=== PATIENT | female | born 1960 | race Caucasian/White ===

== ENCOUNTER → 2016-12-28 | Outpatient (CLI) | payer BC ==
--- NOTE | 2016-12-30 08:15 | MM ---
Reason for exam: screening (asymptomatic). Last mammogram was performed 1 year and 1 month ago. History: Patient is postmenopausal. Family history of breast cancer in 2 maternal aunts. Benign US breast aspiration single RT of the right breast, October 15, 2014. Physical Findings: A clinical breast exam by your physician is recommended on an annual basis and results should be correlated with mammographic findings. MG 3D Screening Mammo W/Cad Bilateral CC and MLO view(s) were taken. Prior study comparison: December 01, 2015, bilateral MG screening mammo w CAD. September 24, 2014, bilateral MG screening mammo w CAD. October 10, 2013, bilateral MG screening mammo w CAD. April 27, 2012, bilateral digital screening mammo w/CAD. The breast tissue is heterogeneously dense. This may lower the sensitivity of mammography. Previous mammotome biopsy in the right breast. No significant changes when compared with prior studies. ASSESSMENT: Negative, BI-RAD 1 RECOMMENDATION: Routine screening mammogram of both breasts in 1 year. A negative exam should not preclude additional follow up of suspicious palpable abnormalities.
== END ==
LOC: RADMAMWWP 15:41
PROVIDERS: ATTEND Family Medicine
DX: Z12.31 Encounter for screening mammogram for malignant neoplasm of breast (principal)
CPT/HCPCS: 77063; G0202

== ENCOUNTER 2017-05-12 11:55 | Emergency (ER) | payer BC ==
[2017-05-12] MEDS ORDERED: ASPIRIN 81 MG PO STA (12:09)
[2017-05-12] MEDS ORDERED: NITROGLYCERIN OINT 1 INCH/GM PACKET TOPICAL STA (12:09)
[2017-05-12 12:27] LABS: Basophils # (A) 0.1 k/uL (0-0.2); Basophils % (A) 1 %; CH 30.4; CHCM 33.8; Eosinophils # (A) 0.1 k/uL (0-0.7); Eosinophils % (A) 1 %; HCT 44.8 % (34.0-46.0); HDW 2.31; Luc # (Auto) 0.16; Luc % (Auto) 3; Lymphocytes # (A) 1.5 k/uL (1.0-4.8); Lymphocytes % (A) 27 %; MCH 30.2 pg (25.0-35.0); MCHC 33.5 g/dL (31.0-37.0); MCV 90.3 fL (80.0-100.0); Mean Platelet Volume 9.7; Monocytes # (A) 0.5 k/uL (0-1.0); Monocytes % (A) 9 %; Neutrophils # (A) 3.3 k/uL (1.3-7.7); Neutrophils % (A) 60 %; RBC 4.96 m/uL (3.80-5.40); WBC 5.5 k/uL (3.8-10.6); WBC (Perox) 5.47
--- NOTE | 2017-05-12 12:32 | ED ---
General Adult HPI - General Chief complaint: Chest Pain Stated complaint: Chest Pain Time Seen by Provider: 05/12/17 11:58 Source: patient, EMS, RN notes reviewed Mode of arrival: EMS Limitations: no limitations - History of Present Illness Initial comments: Patient is a pleasant 57-year-old female presenting to the emergency Department with complaints of chest discomfort. Onset of symptoms was 45 minutes ago. Patient has pressure in her chest without radiation. Symptoms improved with nitroglycerin and are now mild rated 2/10. No associated dyspnea, nausea, or diaphoresis. No history of similar symptoms previously. No abdominal pain. No leg pain or leg swelling. - Related Data Home Medications Medication Instructions Recorded Confirmed Latanoprost Ophth [Xalatan 0.005%] 1 drops BOTH EYES HS 05/12/17 05/12/17 Allergies Allergy/AdvReac Type Severity Reaction Status Date / Time codeine Allergy Unknown Verified 05/12/17 12:47 Childhood Review of Systems ROS Statement: Those systems with pertinent positive or pertinent negative responses have been documented in the HPI. ROS Other: All systems not noted in ROS Statement are negative. Constitutional: Denies: fever Eyes: Denies: eye pain ENT: Denies: ear pain Respiratory: Denies: cough, dyspnea Cardiovascular: Reports: chest pain Endocrine: Denies: fatigue Gastrointestinal: Denies: abdominal pain Genitourinary: Denies: dysuria Musculoskeletal: Denies: back pain Skin: Denies: rash Neurological: Denies: weakness Past Medical History Past Medical History: COPD, Pneumonia History of Any Multi-Drug Resistant Organisms: None Reported Past Surgical History: Section Past Psychological History: No Psychological Hx Reported Smoking Status: Current every day smoker Past Alcohol Use History: None Reported Past Drug Use History: None Reported General Exam Limitations: no limitations General appearance: alert, in no apparent distress Head exam: Present: atraumatic Eye exam: Present: normal appearance, PERRL ENT exam: Present: normal oropharynx Neck exam: Present: normal inspection Respiratory exam: Present: normal lung sounds bilaterally. Absent: chest wall tenderness Cardiovascular Exam: Present: regular rate, normal rhythm Expanded Peripheral pulses: 2+: Radial (R), Radial (L), Dorsalis Pedis (R), Dorsalis Pedis (L) GI/Abdominal exam: Present: soft. Absent: tenderness Extremities exam: Present: normal inspection. Absent: pedal edema, calf tenderness Neurological exam: Present: alert Psychiatric exam: Present: normal affect, normal mood Skin exam: Present: normal color Course Vital Signs 05/12/17 05/12/17 11:55 12:07 Temperature 98.4 F Pulse Rate 72 Pulse Rate [ 72 Eye Physician ] Respiratory 16 Rate Blood Pressure 115/69 O2 Sat by Pulse 100 Oximetry EKG Findings - EKG Comments: EKG Findings:: Normal sinus rhythm 70. MO 138. QRS 78. QT 404. QTC 436. Normal axis. Normal QRS. No acute ST change. Medical Decision Making - Medical Decision Making Patient reevaluated and resting comfortably in bed. Patient symptom-free at this time. Patient updated on results. Patient recommended admission for repeat testing and cardiac evaluation. Patient does demonstrate medical decision making. Patient is made understood limitations of tests in the emergency department. Patient is made aware that heart attack has not been ruled out as well as risk for heart attack in the very near future or other problems. Despite this patient does not feel she is at risk and would like to leave. Patient will leave AGAINST MEDICAL ADVICE. - Lab Data Result diagrams: 05/12/17 12:15 05/12/17 12:15 Lab Results 05/12/17 05/12/17 05/12/17 Range/Units 12:15 12:15 12:15 WBC 5.5 (3.8-10.6) k/uL RBC 4.96 (3.80-5.40) m/uL Hgb 15.0 (11.4-16.0) gm/dL Hct 44.8 (34.0-46.0) % MCV 90.3 (80.0-100.0) fL MCH 30.2 (25.0-35.0) pg MCHC 33.5 (31.0-37.0) g/dL RDW 14.0 (11.5-15.5) % Plt Count 172 (150-450) k/uL Neutrophils % 60 % Lymphocytes % 27 % Monocytes % 9 % Eosinophils % 1 % Basophils % 1 % Neutrophils # 3.3 (1.3-7.7) k/uL Lymphocytes # 1.5 (1.0-4.8) k/uL Monocytes # 0.5 (0-1.0) k/uL Eosinophils # 0.1 (0-0.7) k/uL Basophils # 0.1 (0-0.2) k/uL PT (9.0-12.0) sec INR (<1.2) APTT (22.0-30.0) sec Sodium 137 (137-145) mmol/L Potassium 4.2 (3.5-5.1) mmol/L Chloride 105 (98-107) mmol/L Carbon Dioxide 24 (22-30) mmol/L Anion Gap 8 mmol/L BUN 10 (7-17) mg/dL Creatinine 0.81 (0.52-1.04) mg/dL Est GFR (MDRD) Af Amer >60 (>60 ml/min/1.73 sqM) Est GFR (MDRD) Non-Af >60 (>60 ml/min/1.73 sqM) Glucose 101 H (74-99) mg/dL Calcium 9.3 (8.4-10.2) mg/dL Magnesium 2.0 (1.6-2.3) mg/dL Total Bilirubin 0.7 (0.2-1.3) mg/dL AST 22 (14-36) U/L ALT 28 (9-52) U/L Alkaline Phosphatase 73 (38-126) U/L Total Creatine Kinase 131 (30-135) U/L CK-MB (CK-2) 0.9 (0.0-2.4) ng/mL CK-MB (CK-2) Rel Index 0.7 Troponin I <0.012 (0.000-0.034) ng/mL Total Protein 7.0 (6.3-8.2) g/dL Albumin 4.0 (3.5-5.0) g/dL 05/12/17 Range/Units 12:15 WBC (3.8-10.6) k/uL RBC (3.80-5.40) m/uL Hgb (11.4-16.0) gm/dL Hct (34.0-46.0) % MCV (80.0-100.0) fL MCH (25.0-35.0) pg MCHC (31.0-37.0) g/dL RDW (11.5-15.5) % Plt Count (150-450) k/uL Neutrophils % % Lymphocytes % % Monocytes % % Eosinophils % % Basophils % % Neutrophils # (1.3-7.7) k/uL Lymphocytes # (1.0-4.8) k/uL Monocytes # (0-1.0) k/uL Eosinophils # (0-0.7) k/uL Basophils # (0-0.2) k/uL PT 10.4 (9.0-12.0) sec INR 1.1 (<1.2) APTT 23.3 (22.0-30.0) sec Sodium (137-145) mmol/L Potassium (3.5-5.1) mmol/L Chloride (98-107) mmol/L Carbon Dioxide (22-30) mmol/L Anion Gap mmol/L BUN (7-17) mg/dL Creatinine (0.52-1.04) mg/dL Est GFR (MDRD) Af Amer (>60 ml/min/1.73 sqM) Est GFR (MDRD) Non-Af (>60 ml/min/1.73 sqM) Glucose (74-99) mg/dL Calcium (8.4-10.2) mg/dL Magnesium (1.6-2.3) mg/dL Total Bilirubin (0.2-1.3) mg/dL AST (14-36) U/L ALT (9-52) U/L Alkaline Phosphatase (38-126) U/L Total Creatine Kinase (30-135) U/L CK-MB (CK-2) (0.0-2.4) ng/mL CK-MB (CK-2) Rel Index Troponin I (0.000-0.034) ng/mL Total Protein (6.3-8.2) g/dL Albumin (3.5-5.0) g/dL - Radiology Data Radiology results: image reviewed (Chest x-ray shows hyperinflation, otherwise no acute process.) Disposition Clinical Impression: Chest pain Disposition: Left Against Medical Advice Condition: Stable Instructions: Chest Pain (ED) Additional Instructions: Please follow-up with your doctor tomorrow. Aspirin daily. Return for pain, difficulty breathing, worsening or changing symptoms or other concerns. Referrals: Todd Yuen DO [Primary Care Provider] - 1-2 days Time of Disposition: 14:27
[2017-05-12 12:36] LABS: Anion Gap 8 mmol/L; Calcium 9.3 mg/dL (8.4-10.2); Carbon Dioxide 24 mmol/L (22-30); Chloride 105 mmol/L (98-107); Glucose 101 mg/dL (74-99); INR 1.1 (<1.2); Non-African American GFR(MDRD) >60 (>60 ml/min/1.73 sqM); Partial Thromboplastin Time 23.3 sec (22.0-30.0); Prothrombin Time 10.4 sec (9.0-12.0); Sodium 137 mmol/L (137-145); Total Bilirubin 0.7 mg/dL (0.2-1.3)
--- NOTE | 2017-05-12 12:37 | XR ---
EXAMINATION TYPE: XR chest 2V DATE OF EXAM: 05/12/2017 COMPARISON: 08/25/2014 HISTORY: 57-year-old female said onset chest pain TECHNIQUE: PA and lateral views FINDINGS: Heart is normal size. Aorta and pulmonary vasculature are within normal limits. Hyperinflation with m ild diffuse interstitial prominence. Increased AP chest dimension. Accentuated mid thoracic kyphosis. No consolidation or pleural effusion. No pneumothorax seen. IMPRESSION: COPD. No acute cardiopulmonary process.
[2017-05-12 12:41] LABS: ALT 28 U/L (9-52); AST 22 U/L (14-36); Blood Urea Nitrogen 10 mg/dL (7-17); Potassium 4.2 mmol/L (3.5-5.1)
[2017-05-12 12:42] LABS: Alkaline Phosphatase 73 U/L (38-126)
[2017-05-12 12:50] LABS: Creatine Kinase 131 U/L (30-135)
[2017-05-12 13:03] LABS: Creatine Kinase MB 0.9 ng/mL (0.0-2.4); Troponin I <0.012 ng/mL (0.000-0.034)
[2017-05-12 14:41] VITALS: BP 98/64; PULSE 76; RESP 18; TEMP 97.8
== END 2017-05-12 14:50 | disposition left against medical advice (07) ==
LOC: EC 11:55
DX: R07.9 Chest pain, unspecified (principal); R91.8 Other nonspecific abnormal finding of lung field; F17.200 Nicotine dependence, unspecified, uncomplicated; Z79.899 Other long term (current) drug therapy; Z88.5 Allergy status to narcotic agent
CPT/HCPCS: 36415; 71020; 80053; 82550; 82553; 83735; 84484; 85025; 85610; 85730; 93005; 99285

== ENCOUNTER → 2017-07-15 | Outpatient (CLI) | payer BC ==
--- NOTE | 2017-07-18 07:41 | CT ---
EXAMINATION TYPE: CT chest w con DATE OF EXAM: 07/15/2017 COMPARISON: Chest x-ray May 12, 2017 HISTORY: Lung nodule. Patient also experienced right sided chest pain [address] DLP: 122.3 mGycm. Automated Exposure Control for Dose Reduction was Utilized. TECHNIQUE: CT scan of the thorax is performed following with IV Contrast, patient injected with 100 mL of Omnipaque 300. FINDINGS: LUNGS: Mild to moderate underlying emphysematous changes felt present. There is mild to moderate biap ical pleural/parenchymal scarring. There is anterior right middle lobe scarring medially near axial i mage 39. There is bibasilar linear scarring and/or atelectasis. There is no suspicious new parenchyma l nodule or mass. No pleural effusion or pneumothorax is evident bilaterally. MEDIASTINUM: There are no greater than 1 cm hilar or mediastinal lymph nodes. No cardiomegaly or pe ricardial effusion is seen. There is 8mm left thyroid nodule axial image 7 OTHER: Dystrophic calcification medially left breast is seen axial image 23. Posterior spur is effaci ng anterior thecal sac T10-T11 level sagittal image 57. Slight underlying scoliotic curvature is pres ent. IMPRESSION: Mild to borderline moderate emphysematous change with scattered areas of scarring. No new pulmonary process. No suspicious parenchymal nodule or mass identified.
== END | disposition home or self-care (01) ==
LOC: RADCTMAIN 15:53
PROVIDERS: ATTEND Family Medicine
DX: R91.1 Solitary pulmonary nodule (principal)
CPT/HCPCS: 71260; Q9967

== ENCOUNTER → 2018-03-08 | Outpatient (CLI) | payer BC ==
--- NOTE | 2018-03-09 13:23 | MM ---
Reason for exam: screening (asymptomatic). Last mammogram was performed 1 year and 2 months ago. History: Patient is postmenopausal. Family history of breast cancer in 2 maternal aunts. Benign US breast aspiration single RT of the right breast, October 15, 2014. Physical Findings: A clinical breast exam by your physician is recommended on an annual basis and results should be correlated with mammographic findings. MG 3D Screening Mammo W/Cad Bilateral CC and MLO view(s) were taken. Prior study comparison: December 28, 2016, bilateral MG 3d screening mammo w/cad. December 01, 2015, bilateral MG screening mammo w CAD. The breast tissue is extremely dense which could obscure a lesion on mammography. Previous mammotome biopsy in the right breast. There is chronic nodularity bilaterally. There is no dominant lesion. No significant changes when compared with prior studies. ASSESSMENT: Benign, BI-RAD 2 RECOMMENDATION: Routine screening mammogram of both breasts in 1 year.
== END | disposition home or self-care (01) ==
LOC: RADMAMWWP 13:17
PROVIDERS: ATTEND Family Medicine
DX: Z12.31 Encounter for screening mammogram for malignant neoplasm of breast (principal)
CPT/HCPCS: 77063; 77067

== ENCOUNTER → 2018-04-20 | Outpatient (CLI) | payer BC ==
--- NOTE | 2018-04-20 08:34 | USB ---
Reason for exam: clinical finding. History: Patient is postmenopausal. Family history of breast cancer in 2 maternal aunts. Benign US breast aspiration single RT of the right breast, October 15, 2014. Indicated problem(s): nipple abnormality in the left breast. Physical Findings: Nurse Summary: Patient complains of left nipple inverted x 2 years (nurse mj). US Breast LT Left complete breast ultrasound includes all four quadrants, the retroareolar region and axilla. Finding demonstrates a 0.5 x 0.4 x 0.3cm ductal ectasia at 3 o'clock subareolar. One image shows possible debris or filling defect but this does not persist on the other plane. Follow up recommended. These results were verbally communicated with the patient and result sheet given to the patient on 04/20/18. ASSESSMENT: Probably benign, BI-RAD 3 RECOMMENDATION: Ultrasound of the left breast in 3 months. (subareolar)
== END | disposition home or self-care (01) ==
LOC: RADUSWWP 06:55
PROVIDERS: ATTEND Family Medicine
DX: N64.53 Retraction of nipple (principal)

== ENCOUNTER → 2018-04-21 | Outpatient (CLI) | payer BC ==
[2018-04-21 11:10] VITALS: BP 117/79; PULSE 62; RESP 16; TEMP 97.8; BMI 20.7
--- NOTE | 2018-04-21 11:37 | P.GSHP ---
History of Present Illness H&P Date: 04/21/18 Chief Complaint: inverted nipple Brittnee is a 58-year-old white female who approximately 2 years ago noted that the nipple on her right breast was inverted. She has subsequently had 2 mammograms the most recent in February 2018. On that mammogram the breast tissue was noted to be extremely dense which could obscure a lesion. No specific lesions of concern were noted in either breast. Previous mammotome biopsy in the right breast has been done which was. There is chronic nodularity bilaterally. The patient had a right breast ultrasound performed on 04/20/2018. This revealed a 0.5 cm area of ductal ectasia at 3:00 in the subareolar position. On image showed possible debris or filling defect but this did not persist. This is felt to be probably benign and repeat ultrasound of the left breast in 3 months was recommended. The patient has no history of any masses in her breast. She has no trauma to the breast. No history of infection in the breast. Family history: father: pancreatic cancer paternal aunts: three with brain cancer maternal aunt: breast cancer maternal great aunts times 2: breast cancer Hormonal History: menarche: 18 , 2, first at 21, breast fed: yes menopause:42 BCP: none hormones: none Past Surgical History: 1. Past Medical Hsitory: none Social History: smoke: 1/PPD for 30 years Alcohol: Negative Drugs: Negative - Constitutional Comment: BMI 20.7 Constitutional: Denies chills, Denies fever - EENT Eyes: denies blurred vision, denies pain Ears: deny: decreased hearing, tinnitus Ears, nose, mouth and throat: Denies headache, Denies sore throat - Breasts Breasts: bilateral: as per HPI - Cardiovascular Cardiovascular: Denies chest pain, Denies shortness of breath - Respiratory Comment: smoker - Gastrointestinal Gastrointestinal: Denies abdominal pain, Denies diarrhea, Denies nausea, Denies vomiting - Genitourinary (Female) Genitourinary: Denies dysuria, Denies hematuria - Menstruation Menstruation: Reports postmenopausal - Musculoskeletal Musculoskeletal: Denies myalgias - Integumentary Integumentary: Denies pruritus, Denies rash - Neurological Neurological: Denies numbness, Denies weakness - Psychiatric Psychiatric: Denies anxiety, Denies depression - Endocrine Endocrine: Denies fatigue, Denies weight change - Hematologic/Lymphatic Comment: none - Allergic/Immunologic Allergic/Immunologic: Reports as per HPI Past Medical History Past Medical History: COPD, Pneumonia History of Any Multi-Drug Resistant Organisms: None Reported Past Surgical History: Section Past Psychological History: No Psychological Hx Reported Smoking Status: Current every day smoker Past Alcohol Use History: None Reported Past Drug Use History: None Reported Medications and Allergies Home Medications Medication Instructions Recorded Confirmed Type Latanoprost Ophth [Xalatan 0.005%] 1 drops BOTH EYES HS 05/12/17 04/21/18 History Allergies Allergy/AdvReac Type Severity Reaction Status Date / Time codeine Allergy Unknown Verified 05/12/17 12:47 Childhood Surgical - Exam Vital Signs Temp Pulse Resp BP 97.8 F 62 16 117/79 04/21/18 10:58 04/21/18 10:58 04/21/18 10:58 04/21/18 10:58 BMI 20.7 - General well developed, well nourished, no distress - Eyes normal ocular movement, no icteric - ENT no hearing loss, no congestion - Neck no masses, trachea midline - Respiratory normal respiratory effort, clear to auscultation - Cardiovascular Rhythm: regular Heart Sounds: normal: S1, S2 - Abdomen Abdomen: soft, non tender, no guarding, no rigid, no rebound - Integumentary normal turger - Musculoskeletal normal gait, normal posture - Psychiatric oriented to time, oriented to person, oriented to place, speech is normal, memory intact breast exam: Right breast: Multi-positional exam no dominant mass or notches of concern Right axilla: No adenopathy of concern Left breast: Nipple is inverted there is some slight increased nodularity in the immediate posterior area over area otherwise no dominant masses or nodules of concern Left axilla: No adenopathy of concern Results Mammogram and ultrasound reports reviewed Assessment and Plan Assessment: Impression: 1. Fibrocystic breast changes 2. Inverted left nipple with increased nodularity posterior to the left nipple areolar complex 3. Abnormal ultrasound left breast for which three-month repeat ultrasound was recommended Plan: 1. FNA of the area of increased nodularity behind the left nipple 2. Follow up in 1 week Risk and benefits of FNA were discussed with the patient and she has agreed and this will be performed. CC: Dr. Yuen
--- NOTE | 2018-04-21 11:42 | P.PCN ---
Date of Procedure: 04/21/18 Preoperative Diagnosis: Increased nodularity behind the nipple areolar complex on the left Postoperative Diagnosis: same Procedure(s) Performed: left breast FNA Surgeon: Whitley Talavera Pathology: other (cytology form left breast) Condition: stable Disposition: same day Indications for Procedure: Increased fullness posterior to the nipple areolar complex in the left breast with inverted nipple Operative Findings: cytology Description of Procedure: Brittnee is a 58 year old white female with an area of fullness posterior to the left nipple areolar complex. Additionally she has some inversion of the nipple. The area of concern is prepped using alcohol. 21-gauge needle was used to pass several times into the area of concern and cells are obtained. This was processed and sent to pathology. The patient tolerated the procedure in stable condition. She will follow next week for results. CC: Dr. Padron
== END | disposition home or self-care (01) ==
LOC: WWCWWP 10:50
PROVIDERS: ATTEND Surgery
DX: N64.53 Retraction of nipple (principal)
CPT/HCPCS: 88173

== ENCOUNTER → 2018-05-04 | Outpatient (CLI) | payer BC ==
[2018-05-04 08:54] VITALS: BP 117/71; PULSE 77; RESP 18; TEMP 96.6; BMI 20.7
--- NOTE | 2018-05-04 09:33 | P.PN ---
Progress Note - Text Progress Note Date: 05/04/18 Brittnee is a 58-year-old white female who is status post left breast FNA of an area of some mild thickening in the retroareolar region. For several years she has had some mild inversion of the nipple this has not changed recently. The FNA results were benign revealing adipose tissue and a rare aggregate of planned ductal cells. This was considered however nondiagnostic because of the small amount of cells in the specimen. The patient had had an ultrasound of this area performed on and a repeat left breast ultrasound was recommended in 3 months. Physical examination: There is some ecchymosis in the area of the periareolar region on the left, no evidence of any hematoma Impression: 1. Fibrocystic breast changes 2. Chronically inverted left nipple the patient had a FNA of the area posterior to this which was benign although nondiagnostic 3. Abnormal left breast ultrasound for which repeat three-month ultrasound was recommended Plan: 1. At this time we are going to follow conservatively and see the patient again with a repeat left breast ultrasound in 3 months. We have discussed core biopsy of the area or operative biopsy however at this time the patient does not want this to be done and wishes to be followed conservatively. She understands I cannot tell her what is happening with the tissues behind the nipple areolar complex without further sampling however it does not appear suspicious at this time and she wishes conservative management. Cc: Dr. Yuen
== END ==
LOC: WWCWWP 08:28
PROVIDERS: ATTEND Surgery
DX: Z53.9 Procedure and treatment not carried out, unspecified reason (principal)

== ENCOUNTER → 2018-07-27 | Outpatient (CLI) | payer BC ==
--- NOTE | 2018-07-27 08:49 | USB ---
Reason for exam: follow-up at short interval from prior study. History: Patient is postmenopausal. Family history of breast cancer in 2 maternal aunts. Benign US breast aspiration single RT of the right breast, October 15, 2014. Physical Findings: Nurse Summary: prominent left breast nodularity posterior nipple (nurse ts). US Breast LT Left complete breast ultrasound includes all four quadrants, the retroareolar region and axilla. Finding demonstrates a 0.6 x 0.3 x 0.5cm mixed, stable lesion at 3 o'clock and a 0.5 x 0.2 x 0.5cm stable ductal lesion at the nipple. These results were verbally communicated with the patient and result sheet given to the patient on 07/27/18. ASSESSMENT: Benign, BI-RAD 2 RECOMMENDATION: Return to routine screening mammogram schedule for both breasts.
== END | disposition home or self-care (01) ==
LOC: RADUSWWP 06:47
PROVIDERS: ATTEND Surgery
DX: N63.20 Unspecified lump in the left breast, unspecified quadrant (principal); R92.8 Other abnormal and inconclusive findings on diagnostic imaging of breast

== ENCOUNTER → 2018-09-01 | Outpatient (CLI) | payer BC ==
[2018-09-01 10:01] VITALS: BP 115/69; PULSE 66; RESP 16; TEMP 97.8; BMI 20.7
--- NOTE | 2018-09-01 10:37 | P.PN ---
Subjective Progress Note Date: 09/01/18 Principal diagnosis: left breast ultrasound results Brittnee is a 58-year-old white female who was initially seen in April 2018. At that time it was noted that the nipple on the left side was inverted. She subsequently had 2 mammograms the most recent had been in February 2018. On that mammogram the breast tissue was noted to be very dense and no specific lesions of concern were noted in either breast. The previous mammotome biopsy in the right breast had been done which was negative. There is chronic nodularity bilaterally. The patient had an ultrasound performed in April. This revealed a 0.5 cm area of duct ectasia at the 3:00 subareolar position. On image showed possible debrider filling defect but this did not persist. It was felt that it was probably benign and repeat ultrasound in 3 months was recommended. The patient herself has no complaints related to the breast and has not noted any changes. A repeat ultrasound was performed on . This revealed a stable 0.5 x 0.5 lesion. It was felt that this was benign and return to screening mammogram for both breast was recommended. She will be due for bilateral mammogram in February 2019 and I will repeat a left breast ultrasound at that time as well. The patient denies any lumps masses or nodules in either breast. No changes to her nipple areolar complex. No nipple discharge and no pain in her breast. It should be noted that the patient also had had an FNA done of the area that was performed on . This was nondiagnostic. Family history: Father: Pancreatic cancer Paternal aunts: 3 with plain cancer Maternal: Breast cancer Maternal great aunt 2: Breast cancer Hormonal history: Menarche: 18 Pregnancies: To first in breasted: Yes Menopause: 42 control pills: Negative Hormones: Negative Past surgical history: 1. Past medical history: Negative Social history: Smoke: One pack per day for 30 years Alcohol: Negative Drugs: Negative Review of systems: HEENT: His glasses otherwise negative Lungs: Negative Cardiac: Negative GI: Negative : Negative Musculoskeletal: Negative Psychiatric: Negative Objective - Vital Signs Vital signs: Vital Signs Temp 97.8 F 09/01/18 09:58 Pulse 66 09/01/18 09:58 Resp 16 09/01/18 09:58 BP 115/69 09/01/18 09:58 Pulse Ox 98 09/01/18 09:58 Intake & Output 08/31/18 09/01/18 09/01/18 18:59 06:59 18:59 Weight 59.874 kg - Exam BMI 20.7 - Constitutional General appearance: Present: average body habitus - EENT Eyes: Present: EOMI ENT: Present: hearing grossly normal - Neck Neck: Present: normal ROM - Respiratory Respiratory: bilateral: CTA - Cardiovascular Rhythm: regular Heart sounds: normal: S1, S2 - Gastrointestinal General gastrointestinal: Present: soft - Integumentary Integumentary: Present: normal turgor - Musculoskeletal Musculoskeletal: Present: gait normal - Psychiatric Psychiatric: Present: A&O x's 3, appropriate affect, intact judgment & insight - Additional findings Additional findings: breast exam: Right breast: Multi-positional exam no dominant masses or nodules of concern, fibrocystic changes Right axilla: No adenopathy of concern Left breast: Multiple positional exam no dominant masses or nodules of concern, left nipple is inverted, it does ben with examination but not fully, slight filling of nodularity remains persistent behind the nipple areolar complex Left axilla: No adenopathy of concern Assessment and Plan Assessment: Impression: 1. Abnormal left breast ultrasound 2. Fibrocystic breast changes 3. Inverted left nipple with increased nodularity posterior to the nipple complex 4. family history of cancer I had a conversation with the patient regarding the chronic inversion of the left nipple. Again a have offered an open biopsy which she chooses to not do at this time. The patient understands I cannot tell with certainty that is behind the nipple areolar complex without an open biopsy and that she has opted to be followed conservatively. She does have an FNA which was nondiagnostic but did not show atypical cells, and 2 ultrasounds which did not show any specific lesions of concern. Plan: 1. Bilateral mammogram and left breast ultrasound in February 2019 with appointment at that time 2. Medical management of any medical conditions 3. Encourage the patient to stop smoking CC: Dr. Yuen
== END ==
LOC: WWCWWP 09:44
PROVIDERS: ATTEND Surgery
DX: Z53.9 Procedure and treatment not carried out, unspecified reason (principal)

== ENCOUNTER → 2019-02-27 | Outpatient (CLI) | payer BC ==
--- NOTE | 2019-02-28 08:38 | MM ---
Reason for exam: follow-up at short interval from prior study. Last mammogram was performed 1 year ago. History: Patient is postmenopausal. Family history of breast cancer in 2 maternal aunts. Benign US breast aspiration single RT of the right breast, October 15, 2014. Physical Findings: Nurse Summary: 1 x 1.5cm nodule in the left breast at the nipple (nurse ts). MG 3D Diag Mammo W/Cad RUBEN Bilateral CC and MLO view(s) were taken. Prior study comparison: March 08, 2018, bilateral MG 3d screening mammo w/cad. December 28, 2016, bilateral MG 3d screening mammo w/cad. The breast tissue is extremely dense which could obscure a lesion on mammography. Benign appearing calcifications in the right breast. No suspicious abnormality. Right biopsy marker present. These results were verbally communicated with the patient and result sheet given to the patient on 02/27/19. ASSESSMENT: Benign, BI-RAD 2 RECOMMENDATION: Routine screening mammogram of both breasts in 1 year.
--- NOTE | 2019-02-28 08:41 | USB ---
Reason for exam: follow-up at short interval from prior study. History: Patient is postmenopausal. Family history of breast cancer in 2 maternal aunts. Benign US breast aspiration single RT of the right breast, October 15, 2014. US Breast LT Left complete breast ultrasound includes all four quadrants, the retroareolar region and axilla. Finding demonstrates a 0.4 x 0.2 x 0.3cm probable small cyst at 3 o'clock, a 0.5 x 0.3 x 0.3cm small cyst at 6 o'clock, a 0.6 x 0.3 x 0.8cm taller than wide lesion at 6 o'clock, biopsy recommended and a 0.6 x 0.3 x 0.5cm at 6 o'clock, similar to other 6 o'clock lesion, recommendation for biopsy will be made on radiology/pathology correlation. These results were verbally communicated with the patient and result sheet given to the patient on 02/27/19. ASSESSMENT: Suspicious, BI-RAD 4 RECOMMENDATION: Ultrasound core biopsy of the left breast. Called office with mammographic findings and has scheduled an appointment for the patient for 04/06/19 at 10:[address] Talavera. Biopsy scheduled for 03/28/19 at 12:20. PRELIMINARY REPORT CALLED AND FAXED TO DR. TALAVERA ON 02/28/19.
== END | disposition home or self-care (01) ==
LOC: RADMAMWWP 13:28
PROVIDERS: ATTEND Surgery
DX: R92.8 Other abnormal and inconclusive findings on diagnostic imaging of breast (principal)
CPT/HCPCS: 77062; 77066

== ENCOUNTER → 2019-03-28 | Day surgery (SDC) | payer BC ==
[2019-03-28 11:47] VITALS: BP 115/78; PULSE 73; RESP 16; TEMP 98.2; BMI 20.3
--- NOTE | 2019-03-28 12:55 | USB ---
EXAMINATION TYPE: US discontinued breast bx LT DATE OF EXAM: 03/28/2019 COMPARISON: Left breast ultrasound dated 02/27/2019 HISTORY: Left breast 0.8 cm mass at 6:00 for which biopsy was recommended. TECHNIQUE/FINDINGS: Targeted ultrasound was performed of the left breast from the 4:00 through the 8:00 positions. The 0. 8 cm mass at the 6:00 position seen on the prior exam of 02/27/2019 does not persist on today's exami nation. Heterogenous fibroglandular tissue is noted with pockets of dense tissue, possibly accounting for the prior abnormality. Findings and recommendation for six-month follow-up left breast ultrasoun d were discussed with the patient. IMPRESSION: BI-RADS 3-probably benign. Six-month follow-up left breast ultrasound will be performed a s the 8 mm mass was not reproducible at the time of biopsy.
== END ==
LOC: RADUSWWP 11:21
PROVIDERS: ATTEND Surgery
DX: R92.8 Other abnormal and inconclusive findings on diagnostic imaging of breast (principal); Z53.8 Procedure and treatment not carried out for other reasons

== ENCOUNTER → 2020-03-20 | Outpatient (CLI) | payer BC ==
--- NOTE | 2020-03-21 14:43 | MM ---
Reason for exam: screening (asymptomatic). Last mammogram was performed 1 year and 1 month ago. History: Patient is postmenopausal. Family history of breast cancer in 2 maternal aunts. US discontinued breast bx LT of the left breast, March 28, 2019. Benign US breast aspiration single RT of the right breast, October 15, 2014. Physical Findings: A clinical breast exam by your physician is recommended on an annual basis and results should be correlated with mammographic findings. MG 3D Screening Mammo W/Cad Bilateral CC and MLO view(s) were taken. Prior study comparison: February 27, 2019, bilateral MG 3d diag mammo w/cad RUBEN. March 08, 2018, bilateral MG 3d screening mammo w/cad. The breast tissue is heterogeneously dense. This may lower the sensitivity of mammography. Previous mammotome biopsy in the right breast. No significant changes when compared with prior studies. ASSESSMENT: Benign, BI-RAD 2 RECOMMENDATION: Routine screening mammogram of both breasts in 1 year.
== END | disposition home or self-care (01) ==
LOC: RADMAMWWP 10:04
PROVIDERS: ATTEND Family Medicine
DX: Z12.31 Encounter for screening mammogram for malignant neoplasm of breast (principal)
CPT/HCPCS: 77063; 77067

== ENCOUNTER → 2021-04-30 | Outpatient (CLI) | payer BC ==
--- NOTE | 2021-04-30 13:50 | MM ---
Reason for exam: screening (asymptomatic). Last mammogram was performed 1 year and 1 month ago. History: Patient is postmenopausal. Family history of breast cancer in 2 maternal aunts. US discontinued breast bx LT of the left breast, March 28, 2019. Benign US breast aspiration single RT of the right breast, October 15, 2014. Physical Findings: A clinical breast exam by your physician is recommended on an annual basis and results should be correlated with mammographic findings. MG 3D Screening Mammo W/Cad Bilateral CC and MLO view(s) were taken. Prior study comparison: March 20, 2020, bilateral MG 3d screening mammo w/cad. February 27, 2019, bilateral MG 3d diag mammo w/cad RUBEN. The breast tissue is heterogeneously dense. This may lower the sensitivity of mammography. Previous mammotome biopsy in the right breast. There is no discrete abnormality. ASSESSMENT: Benign, BI-RAD 2 RECOMMENDATION: Routine screening mammogram of both breasts in 1 year.
== END ==
LOC: RADMAMWWP 08:03
PROVIDERS: ATTEND Family Medicine
DX: Z12.31 Encounter for screening mammogram for malignant neoplasm of breast (principal); Z80.3 Family history of malignant neoplasm of breast; Z78.0 Asymptomatic menopausal state
CPT/HCPCS: 77063; 77067

== ENCOUNTER → 2023-06-23 | Outpatient (CLI) | payer BC ==
--- NOTE | 2023-06-27 08:34 | MM ---
Reason for Exam: Screening (asymptomatic). Last mammogram was performed 1 year(s) and 1 month(s) ago. Patient History: Menarche at age 14. First Full-Term at age 22. Postmenopausal. Patient has history of breast feeding. 10/15/2014, Benign Cyst Aspiration on the right side. 03/28/2019, US discontinued breast bx LT on the left side. Maternal aunt had breast cancer. Maternal aunt had breast cancer. Risk Values: Dipti 5 year model risk: 1.3%. NCI Lifetime model risk: 6.4%. Prior Study Comparison: 12/01/2015 Bilateral Screening Mammogram, [facility]. 12/28/2016 Bilateral Screening Mammogram, [facility]. 03/08/2018 Bilateral Screening Mammogram, [facility]. 02/27/2019 Bilateral Diagnostic Mammogram, [facility]. 03/20/2020 Bilateral Screening Mammogram, [facility]. 04/30/2021 Bilateral Screening Mammogram, [facility]. 05/31/2022 Bilateral Screening Mammogram, [facility]. Tissue Density: The breast tissue is heterogeneously dense. This may lower the sensitivity of mammography. Findings: Analyzed By CAD. Right breast biopsy clip. There is no suspicious group of microcalcifications or new suspicious mass. Benign-appearing calcifications right breast. Overall Assessment: Benign, BI-RAD 2 Management: Screening Mammogram of both breasts in [address] [facility] will attempt to contact patient to return for supplemental views and ultrasound if indicated. Patient should continue monthly self-breast exams. A clinical breast exam by your physician is recommended on an annual basis. This exam should not preclude additional follow-up of suspicious palpable abnormalities. Note on Dipti scores and lifetime risk: 1. A Dipti score greater than 3% is considered moderate risk. If this is the case, consider specialist referral to assess eligibility for a risk reducing agent. 2. If overall lifetime risk for the development of breast cancer is 20% or higher, the patient may qualify for future screening with alternating mammogram and breast MRI. Electronically signed and approved by: Faizan Plascencia DO
== END | disposition home or self-care (01) ==
LOC: RADMAMWWP 12:13
PROVIDERS: ATTEND Family Medicine
DX: Z12.31 Encounter for screening mammogram for malignant neoplasm of breast (principal); Z80.3 Family history of malignant neoplasm of breast; Z78.0 Asymptomatic menopausal state
CPT/HCPCS: 77063; 77067

== ENCOUNTER → 2024-07-10 | Outpatient (CLI) | payer BC ==
--- NOTE | 2024-07-10 15:36 | MM ---
Reason for Exam: Screening (asymptomatic). Last screening mammogram was performed 12 month(s) ago. Patient History: Menarche at age 14. First Full-Term at age 22. Postmenopausal. Patient has history of breast feeding. 10/15/2014, Benign Cyst Aspiration on the right side. 03/28/2019, US discontinued breast bx LT on the left side. Maternal aunt had breast cancer. Maternal aunt had breast cancer. Risk Values: Dipti 5 year model risk: 1.4%. NCI Lifetime model risk: 6.2%. Prior Study Comparison: 04/30/2021 Bilateral Screening Mammogram, [facility]. 05/31/2022 Bilateral Screening Mammogram, [facility]. 06/23/2023 Bilateral MG 3D screening mammo w/cad, [facility]. Tissue Density: The breasts are heterogeneously dense, which may obscure small masses. Findings: Analyzed By CAD. Right breast biopsy clip. Right breast: There is no suspicious group of microcalcifications or new suspicious mass. Benign-appearing calcifications right breast. Left breast: There is no suspicious group of microcalcifications or new suspicious mass. Overall Assessment: Benign, BI-RAD 2 Management: Screening Mammogram of both breasts in [address] [facility] will attempt to contact patient to return for supplemental views and ultrasound if indicated. Patient should continue monthly self-breast exams. A clinical breast exam by your physician is recommended on an annual basis. This exam should not preclude additional follow-up of suspicious palpable abnormalities. Note on Dipti scores and lifetime risk: 1. A Dipti score greater than 3% is considered moderate risk. If this is the case, consider specialist referral to assess eligibility for a risk reducing agent. 2. If overall lifetime risk for the development of breast cancer is 20% or higher, the patient may qualify for future screening with alternating mammogram and breast MRI. [facility], , 07/10/2024 3:33 PM. Electronically signed and approved by: Faizan Plascencia DO
== END | disposition home or self-care (01) ==
LOC: RADMAMWWP 15:04
PROVIDERS: ATTEND Family Medicine
DX: Z12.31 Encounter for screening mammogram for malignant neoplasm of breast (principal); R92.333 Mammographic heterogeneous density, bilateral breasts; Z78.0 Asymptomatic menopausal state; Z80.3 Family history of malignant neoplasm of breast
CPT/HCPCS: 77063; 77067

== ENCOUNTER 2024-07-25 20:03 | Emergency (ER) | payer BC ==
--- NOTE | 2024-07-25 20:43 | ED ---
Weakness HPI - General Stated complaint: headche chills Time Seen by Provider: 07/25/24 20:20 Source: patient, family, RN notes reviewed - History of Present Illness Initial comments: This is a 64-year-old female presenting to the emergency department with referral from primary care provider with concerns for dehydration. States that over the past 3 days she has been experiencing intermittent diffuse abdominal pain with multiple bouts of nonbloody diarrhea. Endorses nausea, vomiting, fevers, chills and headaches. She is also currently being treated for bronchitis with antibiotics states that she has been experiencing fevers, cough and congestion. She denies chest pain, difficulty breathing, headaches, blurry double vision. - Related Data Home Medications Medication Instructions Recorded Confirmed Latanoprost Ophth [Xalatan 0.005%] 1 drops BOTH EYES HS 05/12/17 03/28/19 Brimonidine Tartrate/Timolol 1 drop BOTH EYES DAILY 03/12/19 03/28/19 [Combigan 0.2%-0.5% Eye Drops] Allergies Allergy/AdvReac Type Severity Reaction Status Date / Time codeine Allergy Unknown Verified 07/25/24 21:08 Childhood Review of Systems ROS Statement: Those systems with pertinent positive or pertinent negative responses have been documented in the HPI. ROS Other: All systems not noted in ROS Statement are negative. Past Medical History Past Medical History: COPD, Pneumonia History of Any Multi-Drug Resistant Organisms: None Reported Past Surgical History: Breast Surgery, Section Additional Past Surgical History / Comment(s): RIGHT BREAST BIOPSY IN THE PAST Past Psychological History: No Psychological Hx Reported Past Alcohol Use History: None Reported Past Drug Use History: None Reported General Exam - General Exam Comments Initial Comments: Visual Physical Exam Vital signs reviewed General: Well-appearing, nontoxic, no acute distress. Head: Normocephalic, atraumatic Eyes: PERRLA, EOMI ENT: Airway patent Chest: Nonlabored breathing Skin: No visual rash, normal skin tone Neuro: Alert and oriented 3 Musculoskeletal: No gross abnormalities Course Vital Signs 07/25/24 07/25/24 07/26/24 21:04 23:30 00:36 Temperature 101.2 F H 99.1 F Pulse Rate 96 103 H 91 Respiratory 20 17 18 Rate Blood Pressure 103/74 115/81 116/60 O2 Sat by Pulse 93 L 91 L 91 L Oximetry 07/26/24 07/26/24 01:12 01:18 Temperature Pulse Rate 100 91 Respiratory 20 20 Rate Blood Pressure O2 Sat by Pulse Oximetry Medical Decision Making - Medical Decision Making I was pt. sent in by a medical professional or institution (EDGAR Andrade, [employer], urgent care, hospital, or [facility]...) When possible be specific @ -[No] Did you speak to anyone other than the patient for history (EMS, parent, family, police, friend...)? What history was obtained from this source @ -[No] Did you review nursing and triage notes (agree or disagree)? Why? @ -[I reviewed and agree with nursing and triage notes] Were old charts reviewed (outside hosp., previous admission, EMS record, old EKG, old radiological studies, urgent care reports/EKG's, [facility] records)? Report findings @ -[No old charts were reviewed] Differential Diagnosis (chest pain, altered mental status, abdominal pain women, abdominal pain men, vaginal bleeding, weakness, fever, dyspnea, syncope, headache, dizziness, GI bleed, back pain, seizure, CVA, palpatations, mental health, musculoskeletal)? @ -[not applicable] EKG interpreted by me (3pts min.). @ -[As above] X-rays interpreted by me (1pt min.). @ -Chest x-ray no acute cardiopulmonary process, COPD changes CT interpreted by me (1pt min.). @ -[None done] U/S interpreted by me (1pt. min.). @ -[None done] What testing was considered but not performed or refused? (CT, X-rays, U/S, labs)? Why? @ -[None] What meds were considered but not given or refused? Why? @ -[None] Did you discuss the management of the patient with other professionals (professionals i.e. EDGAR Andrade, [employer], lab, RT, psych nurse, social services assistant, school psychology specialist, teacher, client sales and service officer, bottle caser)? Give summary @ -[No] Was smoking cessation discussed for >3mins.? @ -[No] Was critical care preformed (if so, how long)? @ -[No] Were there social determinants of health that impacted care today? How? (Homelessness, low income, unemployed, alcoholism, drug addiction, transpo rtation, low edu. Level, literacy, decrease access to med. care, detention, rehab)? @ -[No] Was there de-escalation of care discussed even if they declined (Discuss DNR or withdrawal of care, Hospice)? DNR status @ -[No] What co-morbidities impacted this encounter? (DM, HTN, Smoking, COPD, CAD, Cancer, CVA, ARF, Chemo, Hep., AIDS, mental health diagnosis, sleep apnea, morbid obesity)? @ -[None] Was patient admitted / discharged? Hospital course, mention meds given and route, prescriptions, significant lab abnormalities, going to OR and other pertinent info. @ -[hospital course] Undiagnosed new problem with uncertain prognosis? @ -[No] Drug Therapy requiring intensive monitoring for toxicity (Heparin, Nitro, Insulin, Cardizem)? @ -[No] Were any procedures done? @ -[No] Diagnosis/symptom? @ -[default] Acute, or Chronic, or Acute on Chronic? @ -[default] Uncomplicated (without systemic symptoms) or Complicated (systemic symptoms)? @ -[default] Side effects of treatment? @ -[No] Exacerbation, Progression, or Severe Exacerbation? @ -[No] Poses a threat to life or bodily function? How? (Chest pain, [place], [place], pneumonia, PE, COPD, DKA, ARF, appy, cholecystitis, CVA, Diverticulitis, Homicidal, S uicidal, threat to staff... and all critical care pts) @ -[No] - Lab Data Result diagrams: 07/25/24 21:34 07/25/24 23:26 Lab Results 07/25/24 07/25/24 07/25/24 Range/Units 21:08 21:34 21:34 WBC 11.0 H (3.8-10.6) k/uL RBC 5.40 (3.80-5.40) m/uL Hgb 16.2 H (11.4-16.0) gm/dL Hct 48.0 H (34.0-46.0) % MCV 89.0 (80.0-100.0) fL MCH 30.0 (25.0-35.0) pg MCHC 33.7 (31.0-37.0) g/dL RDW 12.3 (11.5-15.5) % Plt Count 169 (150-450) k/uL MPV 11.2 Neutrophils % 81 % Lymphocytes % 12 % Monocytes % 5 % Eosinophils % 1 % Basophils % 0 % Neutrophils # 8.8 H (1.3-7.7) k/uL Lymphocytes # 1.3 (1.0-4.8) k/uL Monocytes # 0.6 (0-1.0) k/uL Eosinophils # 0.1 (0-0.7) k/uL Basophils # 0.0 (0-0.2) k/uL Sodium (137-145) mmol/L Potassium (3.5-5.1) mmol/L Chloride (98-107) mmol/L Carbon Dioxide (22-30) mmol/L Anion Gap mmol/L BUN (7-17) mg/dL Creatinine (0.52-1.04) mg/dL Est GFR (CKD-EPI)AfAm (>60 ml/min/1.73 sqM) Est GFR (CKD-EPI)NonAf (>60 ml/min/1.73 sqM) Glucose (74-99) mg/dL Plasma Lactic Acid Gian 1.6 (0.7-2.0) mmol/L Calcium (8.4-10.2) mg/dL Total Bilirubin (0.2-1.3) mg/dL AST (14-36) U/L ALT (4-34) U/L Alkaline Phosphatase (38-126) U/L Total Protein (6.3-8.2) g/dL Albumin (3.5-5.0) g/dL Lipase (23-300) U/L Urine Color Urine Appearance (Clear) Urine pH (5.0-8.0) Ur Specific [place] (1.001-1.035) Urine Protein (Negative) Urine Glucose (UA) (Negative) Urine Ketones (Negative) Urine Blood (Negative) Urine Nitrite (Negative) Urine Bilirubin (Negative) Urine Urobilinogen (<2.0) mg/dL Ur Leukocyte Esterase (Negative) Urine RBC (0-5) /hpf Urine WBC (0-5) /hpf Ur Squamous Epith Cells (0-4) /hpf Urine Mucus (None) /hpf Influenza Type A (PCR) Not Detected (Not Detectd) Influenza Type B (PCR) Not Detected (Not Detectd) RSV (PCR) Not Detected (Not Detectd) SARS-CoV-2 (PCR) Not Detected (Not Detectd) 07/25/24 07/26/24 Range/Units 23:26 00:40 WBC (3.8-10.6) k/uL RBC (3.80-5.40) m/uL Hgb (11.4-16.0) gm/dL Hct (34.0-46.0) % MCV (80.0-100.0) fL MCH (25.0-35.0) pg MCHC (31.0-37.0) g/dL RDW (11.5-15.5) % Plt Count (150-450) k/uL MPV Neutrophils % % Lymphocytes % % Monocytes % % Eosinophils % % Basophils % % Neutrophils # (1.3-7.7) k/uL Lymphocytes # (1.0-4.8) k/uL Monocytes # (0-1.0) k/uL Eosinophils # (0-0.7) k/uL Basophils # (0-0.2) k/uL Sodium 129 L (137-145) mmol/L Potassium 3.7 (3.5-5.1) mmol/L Chloride 94 L (98-107) mmol/L Carbon Dioxide 27 (22-30) mmol/L Anion Gap 8 mmol/L BUN 9 (7-17) mg/dL Creatinine 0.71 (0.52-1.04) mg/dL Est GFR (CKD-EPI)AfAm >90 (>60 ml/min/1.73 sqM) Est GFR (CKD-EPI)NonAf >90 (>60 ml/min/1.73 sqM) Glucose 120 H (74-99) mg/dL Plasma Lactic Acid Gian (0.7-2.0) mmol/L Calcium 9.2 (8.4-10.2) mg/dL Total Bilirubin 1.0 (0.2-1.3) mg/dL AST 58 H (14-36) U/L ALT 49 H (4-34) U/L Alkaline Phosphatase 117 (38-126) U/L Total Protein 6.9 (6.3-8.2) g/dL Albumin 3.9 (3.5-5.0) g/dL Lipase 41 (23-300) U/L Urine Color Yellow Urine Appearance Cloudy H (Clear) Urine pH 6.5 (5.0-8.0) Ur Specific [place] 1.024 (1.001-1.035) Urine Protein 1+ H (Negative) Urine Glucose (UA) Negative (Negative) Urine Ketones Negative (Negative) Urine Blood Moderate H (Negative) Urine Nitrite Negative (Negative) Urine Bilirubin Negative (Negative) Urine Urobilinogen 2.0 (<2.0) mg/dL Ur Leukocyte Esterase Negative (Negative) Urine RBC 20 H (0-5) /hpf Urine WBC 4 (0-5) /hpf Ur Squamous Epith Cells <1 (0-4) /hpf Urine Mucus Few H (None) /hpf Influenza Type A (PCR) (Not Detectd) Influenza Type B (PCR) (Not Detectd) RSV (PCR) (Not Detectd) SARS-CoV-2 (PCR) (Not Detectd) Disposition Clinical Impression: Pneumonia Disposition: HOME SELF-CARE Condition: Stable Instructions (If sedation given, give patient instructions): Pneumonia (ED) Additional Instructions: Please return to the Emergency Department if symptoms worsen or any other concerns. Is patient prescribed a controlled substance at d/c from ED?: No Referrals: Todd Yuen DO [Primary Care Provider] - 1-2 days Time of Disposition: 02:05
[2024-07-25 21:50] LABS: Basophils % (A) 0 %; Eosinophils # (A) 0.1 k/uL (0-0.7); Eosinophils % (A) 1 %; HGB 16.2 gm/dL (11.4-16.0); Lymphocytes # (A) 1.3 k/uL (1.0-4.8); Lymphocytes % (A) 12 %; MCHC 33.7 g/dL (31.0-37.0); Mean Platelet Volume 11.2; Monocytes # (A) 0.6 k/uL (0-1.0); Monocytes % (A) 5 %; Neutrophils # (A) 8.8 k/uL (1.3-7.7); Neutrophils % (A) 81 %; Platelet Count 169 k/uL (150-450); RDW 12.3 % (11.5-15.5)
[2024-07-25 21:52] LABS: Influenza A Not Detected (Not Detectd); Influenza B Not Detected (Not Detectd); RSV Not Detected (Not Detectd)
[2024-07-25] MEDS: ACETAMINOPHEN TAB 500 MG TAB PO STA (23:35)
[2024-07-25] MEDS: LACTATED RINGERS 1,000 ML IV SCH (23:38)
[2024-07-25 23:45] LABS: ALT 49 U/L (4-34); African American GFR (CKD) >90 (>60 ml/min/1.73 sqM); Albumin 3.9 g/dL (3.5-5.0); Anion Gap 8 mmol/L; Blood Urea Nitrogen 9 mg/dL (7-17); Calcium 9.2 mg/dL (8.4-10.2); Carbon Dioxide 27 mmol/L (22-30); Chloride 94 mmol/L (98-107); Glucose 120 mg/dL (74-99); Lipase 41 U/L (23-300); Non-African American GFR(CKD) >90 (>60 ml/min/1.73 sqM); Sodium 129 mmol/L (137-145); Total Protein 6.9 g/dL (6.3-8.2)
[2024-07-25 23:50] LABS: AST 58 U/L (14-36); Potassium 3.7 mmol/L (3.5-5.1)
[2024-07-25 23:51] LABS: Alkaline Phosphatase 117 U/L (38-126)
--- NOTE | 2024-07-25 23:53 | XR ---
EXAMINATION TYPE: XR chest 2V DATE OF EXAM: 07/25/2024 11:47 PM COMPARISON: Chest radiographs from 05/12/2017, CT chest 07/15/2017 TECHNIQUE: XR chest 2V Frontal and lateral views of the chest. CLINICAL INDICATION:Female, 64 years old with history of HAYDE, cough, fevers; FINDINGS: Lungs/Pleura: There is flattening of the diaphragm with increased lucency of the lungs. No evidence o f pneumothorax, pleural effusion or focal consolidation. Chronic senescent parenchymal change. Increa sed AP diameter. Pulmonary vascularity: Unremarkable. Heart/mediastinum: Cardiomediastinal silhouette is unremarkable. Atherosclerotic calcifications are seen in the aorta. Musculoskeletal: No acute osseous pathology. IMPRESSION: 1. No acute cardiopulmonary disease process. 2. COPD changes. , [facility], , 07/25/2024 11:51 PM
[2024-07-26] MEDS: methylPREDNISolone SOD SUCCI 125 MG/2 ML VIAL IV STA (00:48)
[2024-07-26 01:02] LABS: Appearance,Urine Cloudy (Clear); Bilirubin,Urine Negative (Negative); Blood,Urine Moderate (Negative); Color,Urine Yellow; Glucose,Urine (UA) Negative (Negative); Ketones,Urine Negative (Negative); Leukocyte Esterase,Urine Negative (Negative); Mucus,Urine Few /hpf; Nitrite,Urine Negative (Negative); PH, Urine 6.5 (5.0-8.0); Protein,Urine 1+ (Negative); RBC,Urine 20 /hpf (0-5); Specific Gravity,Urine 1.024 (1.001-1.035); Squamous Epithelial Cell,Urine <1 /hpf (0-4); WBC,Urine 4 /hpf (0-5)
[2024-07-26] MEDS: IPRATROPIUM-ALBUTEROL 3 ML NEB INHALATION STA (01:11)
[2024-07-26 03:18] VITALS: BP 122/73; PULSE 89; RESP 17; TEMP 98.2
== END 2024-07-26 03:23 | disposition home or self-care (01) ==
LOC: EC 20:03
DX: J18.9 Pneumonia, unspecified organism (principal)
CPT/HCPCS: 36415; 71046; 80053; 81001; 83605; 83690; 85025; 87040; 87636; 96361; 96365; 96375; 99284

== ENCOUNTER 2024-07-28 09:55 | Inpatient (IN) | payer BC ==
--- NOTE | 2024-07-28 10:40 | ED ---
General Adult HPI - General Chief complaint: Shortness of Breath Stated complaint: SOB Time Seen by Provider: 07/28/24 10:14 Source: patient, family Mode of arrival: EMS Limitations: no limitations - History of Present Illness Initial comments: Dictation was produced using [employer] dictation software. please excuse any grammatical, word or spelling errors. Chief Complaint: 64-year-old female presents to the ER for persistent dyspnea cough History of Present Illness: Patient 64-year-old female presents emergency department with dyspnea. Patient was seen in the emergency department for similar issues on 3 days ago. She has been having symptoms for the last 5 days. She was offered admission due to hypoxic respiratory failure. She preferred to be discharged with close outpatient follow-up. Patient reports history of COPD. She does have complaints of fever and constitutional symptoms. States that she has a dry cough. Denies any chest pain. The ROS documented in this emergency department record has been reviewed and confirmed by me. Those systems with pertinent positive or negative responses have been documented in the HPI. All other systems are other negative and/or noncontributory. - Related Data Home Medications Medication Instructions Recorded Confirmed Latanoprost Ophth [Xalatan 0.005%] 1 drops BOTH EYES HS 05/12/17 03/28/19 Brimonidine Tartrate/Timolol 1 drop BOTH EYES DAILY 03/12/19 03/28/19 [Combigan 0.2%-0.5% Eye Drops] Allergies Allergy/AdvReac Type Severity Reaction Status Date / Time codeine Allergy Unknown Verified 07/27/24 16:46 Childhood Review of Systems ROS Statement: Those systems with pertinent positive or pertinent negative responses have been documented in the HPI. ROS Other: All systems not noted in ROS Statement are negative. Past Medical History Past Medical History: COPD, Pneumonia Additional Past Medical History / Comment(s): leaking heart valves History of Any Multi-Drug Resistant Organisms: None Reported Past Surgical History: Breast Surgery, Section Additional Past Surgical History / Comment(s): RIGHT BREAST BIOPSY IN THE PAST Past Psychological History: No Psychological Hx Reported Past Alcohol Use History: None Reported Past Drug Use History: None Reported General Exam - General Exam Comments Initial Comments: PHYSICAL EXAM: General Impression: Alert and oriented x3, acute distress secondary to dyspnea HEENT: Normocephalic atraumatic, extra-ocular movements intact, pupils equal and reactive to light bilaterally, mucous membranes moist. Cardiovascular: Heart regular rate and rhythm Chest: Coughing, diffuse rhonchi and rales Abdomen: abdomen soft, non-tender, non-distended, no organomegaly Musculoskeletal: Pulses present and equal in all extremities, no peripheral edema Motor: no focal deficits noted Neurological: CN II-XII grossly intact, no focal motor or sensory deficits noted Skin: Intact with no visualized rashes Psych: Normal affect and mood Limitations: no limitations Course Vital Signs 07/28/24 07/28/24 07/28/24 10:01 10:15 10:21 Temperature 99.2 F 100.0 F H Pulse Rate 102 H 105 H Respiratory 18 18 22 Rate Blood Pressure 129/69 134/77 O2 Sat by Pulse 90 L 91 L Oximetry 07/28/24 11:26 Temperature Pulse Rate 101 H Respiratory 18 Rate Blood Pressure 129/69 O2 Sat by Pulse 88 L Oximetry EKG Findings - EKG Comments: EKG Findings:: My EKG interpretation: Ventricular rate 101, sinus tachycardia,. 131, QRS 89, QTc 3 4. No AL prolongation, no QTC prolongation, no ST or T-wave changes noted. Overall, this EKG is unremarkable Medical Decision Making - Medical Decision Making Was pt. sent in by a medical professional or institution (, PA, DAIRY NUTRITIONIST, urgent care, hospital, or group home...) When possible be specific @ -No Did you speak to anyone other than the patient for history (EMS, parent, family, police, friend...)? What history was obtained from this source @ -No Did you review nursing and triage notes (agree or disagree)? Why? @ -I reviewed and agree with nursing and triage notes Were old charts reviewed (outside hosp., previous admission, EMS record, old EKG, old radiological studies, urgent care reports/EKG's, group home records)? Report findings @ -No old charts were reviewed Differential Diagnosis (chest pain, altered mental status, abdominal pain women, abdominal pain men, vaginal bleeding, musculoskeletal, weakness, fever, dyspnea, syncope, headache, dizziness, GI bleed, back pain, seizure, CVA, palpatations, mental health)? @ -Differential Dyspnea: Coronary syndrome, arrhythmia, tamponade, asthma, COPD, pulmonary embolism, pneumonia, pneumothorax, pulmonary effusion, anaphylaxis, diabetic ketoacidosis, flailed chest, pulmonary contusion, diaphragmatic rupture, anemia, neuromuscular, this is not meant to be an all-inclusive list. EKG interpreted by me (3pts min.). @ -See above X-rays interpreted by me (1pt min.). @ -Chest x-ray shows pneumonia CT interpreted by me (1pt min.). @ -None done U/S interpreted by me (1pt. min.). @ -None done What testing was considered but not performed or refused? (CT, X-rays, U/S, labs)? Why? @ -None What meds were considered but not given or refused? Why? @ -None Was smoking cessation discussed for >3mins.? @ -No Were there social determinants of health that impacted care today? How? (Homelessness, low income, unemployed, alcoholism, drug addiction, araiza sportation, low edu. Level, literacy, decrease access to med. care, penitentiary, rehab)? @ -No Was there de-escalation of care discussed even if they declined (Discuss DNR or withdrawal of care, Hospice)? DNR status @ -No What co-morbidities impacted this encounter? (DM, HTN, Smoking, COPD, CAD, Cancer, CVA, ARF, Chemo, Hep., AIDS, mental health diagnosis, sleep apnea, morbid obesity)? @ -COPD Was patient admitted / discharged? Hospital course, mention meds given and route, prescriptions, significant lab abnormalities, going to OR and other pertinent info. @ -65-year-old female presents emergency department with worsening dyspnea. Vital signs upon arrival shows 90% on 4 L nasal cannula she does not wear home O2 she has low-grade fever. Not hypotensive. Rest of vital signs are unremarkable. Labs obtained. Influenza A positive. X-ray shows multilobar infiltrates. Patient given breathing treatment steroids. Will be admitted with consultation to pulmonology. Patient nonseptic Did you discuss the management of the patient with other professionals (professionals i.e. , PA, DAIRY NUTRITIONIST, lab, RT, psych nurse, social services specialist, supervisor doping, teacher, credit control officer, showcase trimmer)? Give summary @ -No Was critical care preformed (if so, how long)? @ -yes, 33 mins Undiagnosed new problem with uncertain prognosis? @ -No Drug Therapy requiring intensive monitoring for toxicity (Heparin, Nitro, Ins ulin, Cardizem)? @ -No Were any procedures done? @ -No Diagnosis/symptom? Acute, or Chronic, or Acute on Chronic? Uncomplicated (without systemic symptoms) or Complicated (systemic symptoms)? @ -Pneumonia Side effects of treatment? @ -No Exacerbation, Progression, or Severe Exacerbation? @ -No Poses a threat to life or bodily function? How? (Chest pain, [place], [place], pneumonia, PE, COPD, DKA, ARF, appy, cholecystitis, CVA, Diverticulitis, Homicidal, Suicidal, threat to staff... and all critical care pts) @ -yes - Lab Data Result diagrams: 07/28/24 11:06 07/28/24 11:06 Lab Results 07/28/24 07/28/24 07/28/24 Range/Units 11:06 11:06 11:06 WBC 8.9 (3.8-10.6) k/uL RBC 4.51 (3.80-5.40) m/uL Hgb 13.4 (11.4-16.0) gm/dL Hct 40.2 (34.0-46.0) % MCV 89.2 (80.0-100.0) fL MCH 29.8 (25.0-35.0) pg MCHC 33.4 (31.0-37.0) g/dL RDW 12.3 (11.5-15.5) % Plt Count 183 (150-450) k/uL MPV 9.8 Neutrophils % 81 % Lymphocytes % 12 % Monocytes % 6 % Eosinophils % 0 % Basophils % 0 % Neutrophils # 7.2 (1.3-7.7) k/uL Lymphocytes # 1.1 (1.0-4.8) k/uL Monocytes # 0.5 (0-1.0) k/uL Eosinophils # 0.0 (0-0.7) k/uL Basophils # 0.0 (0-0.2) k/uL PT 10.8 (10.0-12.5) sec INR 1.0 (<1.2) APTT 21.8 L (22.0-30.0) sec Sodium 132 L (137-145) mmol/L Potassium 3.1 L (3.5-5.1) mmol/L Chloride 94 L (98-107) mmol/L Carbon Dioxide 30 (22-30) mmol/L Anion Gap 8 mmol/L BUN 10 (7-17) mg/dL Creatinine 0.66 (0.52-1.04) mg/dL Est GFR (CKD-EPI)AfAm >90 (>60 ml/min/1.73 sqM) Est GFR (CKD-EPI)NonAf >90 (>60 ml/min/1.73 sqM) Glucose 107 H (74-99) mg/dL Plasma Lactic Acid Gian (0.7-2.0) mmol/L Calcium 8.4 (8.4-10.2) mg/dL Magnesium 2.0 (1.6-2.3) mg/dL Total Bilirubin 0.5 (0.2-1.3) mg/dL AST 72 H (14-36) U/L ALT 75 H (4-34) U/L Alkaline Phosphatase 116 (38-126) U/L Troponin I (0.000-0.034) ng/mL NT-Pro-B Natriuret Pep 1500 pg/mL Total Protein 6.1 L (6.3-8.2) g/dL Albumin 3.4 L (3.5-5.0) g/dL Influenza Type A (PCR) (Not Detectd) Influenza Type B (PCR) (Not Detectd) RSV (PCR) (Not Detectd) SARS-CoV-2 (PCR) (Not Detectd) 07/28/24 07/28/24 07/28/24 Range/Units 11:06 11:06 11:06 WBC (3.8-10.6) k/uL RBC (3.80-5.40) m/uL Hgb (11.4-16.0) gm/dL Hct (34.0-46.0) % MCV (80.0-100.0) fL MCH (25.0-35.0) pg MCHC (31.0-37.0) g/dL RDW (11.5-15.5) % Plt Count (150-450) k/uL MPV Neutrophils % % Lymphocytes % % Monocytes % % Eosinophils % % Basophils % % Neutrophils # (1.3-7.7) k/uL Lymphocytes # (1.0-4.8) k/uL Monocytes # (0-1.0) k/uL Eosinophils # (0-0.7) k/uL Basophils # (0-0.2) k/uL PT (10.0-12.5) sec INR (<1.2) APTT (22.0-30.0) sec Sodium (137-145) mmol/L Potassium (3.5-5.1) mmol/L Chloride (98-107) mmol/L Carbon Dioxide (22-30) mmol/L Anion Gap mmol/L BUN (7-17) mg/dL Creatinine (0.52-1.04) mg/dL Est GFR (CKD-EPI)AfAm (>60 ml/min/1.73 sqM) Est GFR (CKD-EPI)NonAf (>60 ml/min/1.73 sqM) Glucose (74-99) mg/dL Plasma Lactic Acid Gian 1.4 (0.7-2.0) mmol/L Calcium (8.4-10.2) mg/dL Magnesium (1.6-2.3) mg/dL Total Bilirubin (0.2-1.3) mg/dL AST (14-36) U/L ALT (4-34) U/L Alkaline Phosphatase (38-126) U/L Troponin I <0.012 (0.000-0.034) ng/mL NT-Pro-B Natriuret Pep pg/mL Total Protein (6.3-8.2) g/dL Albumin (3.5-5.0) g/dL Influenza Type A (PCR) Detected A (Not Detectd) Influenza Type B (PCR) Not Detected (Not Detectd) RSV (PCR) Not Detected (Not Detectd) SARS-CoV-2 (PCR) Not Detected (Not Detectd) Disposition Clinical Impression: Pneumonia Disposition: ADMITTED IP TO THIS HOSP Condition: Fair Referrals: Todd Yuen DO [Primary Care Provider] - 1-2 days Decision Time: 12:57
[2024-07-28 11:22] LABS: Basophils % (A) 0 %; Eosinophils % (A) 0 %; HCT 40.2 % (34.0-46.0); HGB 13.4 gm/dL (11.4-16.0); Lymphocytes # (A) 1.1 k/uL (1.0-4.8); Lymphocytes % (A) 12 %; MCH 29.8 pg (25.0-35.0); MCHC 33.4 g/dL (31.0-37.0); MCV 89.2 fL (80.0-100.0); Mean Platelet Volume 9.8; Monocytes # (A) 0.5 k/uL (0-1.0); Monocytes % (A) 6 %; Neutrophils # (A) 7.2 k/uL (1.3-7.7); Neutrophils % (A) 81 %; Platelet Count 183 k/uL (150-450); RBC 4.51 m/uL (3.80-5.40); RDW 12.3 % (11.5-15.5); WBC 8.9 k/uL (3.8-10.6)
[2024-07-28 11:24] LABS: Prothrombin Time 10.8 sec (10.0-12.5)
[2024-07-28 11:26] LABS: ALT 75 U/L (4-34); AST 72 U/L (14-36); African American GFR (CKD) >90 (>60 ml/min/1.73 sqM); Albumin 3.4 g/dL (3.5-5.0); Alkaline Phosphatase 116 U/L (38-126); Anion Gap 8 mmol/L; Blood Urea Nitrogen 10 mg/dL (7-17); Calcium 8.4 mg/dL (8.4-10.2); Carbon Dioxide 30 mmol/L (22-30); Chloride 94 mmol/L (98-107); Glucose 107 mg/dL (74-99); Non-African American GFR(CKD) >90 (>60 ml/min/1.73 sqM); Potassium 3.1 mmol/L (3.5-5.1); Sodium 132 mmol/L (137-145); Total Bilirubin 0.5 mg/dL (0.2-1.3); Total Protein 6.1 g/dL (6.3-8.2)
[2024-07-28] MEDS: ACETAMINOPHEN TAB 500 MG TAB PO STA (11:28)
[2024-07-28 11:35] LABS: NT-Pro-B-Type Natriuretic Pept 1500 pg/mL; Partial Thromboplastin Time 21.8 sec (22.0-30.0)
[2024-07-28 11:51] LABS: Influenza A Detected (Not Detectd); Influenza B Not Detected (Not Detectd); RSV Not Detected (Not Detectd)
--- NOTE | 2024-07-28 12:06 | XR ---
EXAMINATION TYPE: XR chest 2V DATE OF EXAM: 07/28/2024 11:58 AM COMPARISON: Chest radiographs from 07/25/2024 TECHNIQUE: XR chest 2V Frontal and lateral views of the chest. CLINICAL INDICATION:Female, 64 years old with history of hypoxia; FINDINGS: Lungs/Pleura: There is flattening of the diaphragm with increased lucency of the lungs. No evidence o f pneumothorax or pleural effusion. Bilateral midline airspace opacities now demonstrated. Pulmonary vascularity: Unremarkable. Heart/mediastinum: Cardiomediastinal silhouette is enlarged and stable. Atherosclerotic calcificatio ns are seen in the aorta. Musculoskeletal: No acute osseous pathology. IMPRESSION: 1. Development of bilateral mid lung airspace opacities concerning for pneumonia. 2. COPD changes. [facility], , 07/28/2024 12:04 PM
[2024-07-28] MEDS ORDERED: PNEUMONIA PROTOCOL UTILIZED 1 EACH MISC PO PRN (12:45)
[2024-07-28] MEDS: cefTRIAXone IN SWFI 1,000 MG/10 ML SYRINGE IVP STA (13:18)
[2024-07-28] MEDS: DEXAMETHASONE SOD PHOSPHATE 10 MG/ML 1 ML VIAL IV STA (13:23)
[2024-07-28] MEDS: AZITHROMYCIN 500 MG in SODIUM CHLORIDE 0.9% 250 ML IVPB STA (13:34)
[2024-07-28] MEDS: IPRATROPIUM-ALBUTEROL 3 ML NEB INHALATION STA (14:06)
[2024-07-28] MEDS ORDERED: NALOXONE 0.4 MG/ML 1 ML VIAL IV PRN (17:58)
[2024-07-28] MEDS ORDERED: CALCIUM CARBONATE 500 MG CHEWABLE PO PRN (17:58)
[2024-07-28] MEDS ORDERED: ACETAMINOPHEN TAB 325 MG TAB PO PRN (17:58)
[2024-07-28] MEDS ORDERED: ALPRAZolam 0.25 MG TAB PO PRN (17:58)
[2024-07-28] MEDS ORDERED: ONDANSETRON 4 MG/2 ML VIAL IVP PRN (17:58)
[2024-07-28] MEDS ORDERED: TEMAZEPAM 15 MG CAP PO PRN (17:58)
[2024-07-28] MEDS ORDERED: LACTULOSE 20 GM/30 ML CUP PO PRN (17:58)
[2024-07-28] MEDS ORDERED: ALBUTEROL HFA INHALER INHALATION PRN (17:58)
[2024-07-28] MEDS: POTASSIUM CHLORIDE ER 20 MEQ TAB.ER PO STA (19:34)
[2024-07-28] MEDS: ENOXAPARIN 40 MG/0.4 ML SYRINGE SQ SCH (19:35)
[2024-07-28] MEDS: NICOTINE 21MG/24HR PATCH TRANSDERM SCH (19:35)
[2024-07-28] MEDS: ESTRADIOL 0.1 MG/GM VAGINAL CREAM 42.5 GM TUBE VAGINAL SCH (19:46)
--- NOTE | 2024-07-28 23:05 | P.HPIM ---
History of Present Illness H&P Date: 07/28/24 Chief Complaint: Unwell Pleasant 64-year-old patient follows with Dr. Yuen. Patient is accompanied by her in the room. About 6 days ago patient started feeling unwell that is on Tuesday. Finally decided to go and see her family doctor. Was seen by the STAFF RADIOGRAPHER. Told to come into the hospital were finally decided to come in today. Has been having fever chills. Increasing cough. Also had some loose stools. Tired decreased appetite rundown. Patient is a smoker Review of systems: GEN.: Fever chills decreased appetite tired EYES: None HEENT: None NECK: None RESPIRATORY: As above e CARDIOVASCULAR: None GASTROINTESTINAL: [Had diarrhea but now improved GENITOURINARY: None MUSCULOSKELETAL: None LYMPHATICS: None HEMATOLOGICAL: None PSYCHIATRY: None NEUROLOGICAL: None Social history: Smokes a pack a day for close to 44 years. No alcohol. Lives with her . Physical examination: VITAL SIGNS: 100.1, 105, 22, 134 x 77, 88% on 4 L GENERAL: BMI 19.6, in bed, tired a bit short of breath. EYES: Pupils equal. Conjunctiva pooja l. HEENT: External appearance of nose and ears normal, oral cavity grossly normal. NECK: JVD not raised; masses not palpable. HEART: First and second heart sounds are normal; no edema. LUNGS: Respiratory rate increased, decreased breath sounds some scattered crackles. ABDOMEN: Soft, nontender, liver spleen not palpable, no masses palpable. PSYCH: [Alert and oriented x3; mood and affect bit anxious MUSCULOSKELETAL:No Clubbing/cyanosis;muscles-grossly intact NEUROLOGICAL: Cranial nerves grossly intact; no facial asymmetry, power and sensation grossly intact. LYMPHATICS: No lymph nodes palpable in the axilla and neck INVESTIGATIONS, reviewed in the clinical context: July 28, 2024: White count 8.9 hemoglobin 13.4 platelets per 83 sodium 132 potassium 3.1 BUN 10 creatinine 0.66 AST 72 ALT 75 Influenza type a PCR: Detected [influenza type B, RSV, SARS-CoV-2: Not detected] EKG tracing personally reviewed by me-sinus tachycardia. NonspecificSlight ST segment changes Chest x-ray film personally reviewed by me-bilateral infiltrates. Hyperinflation Assessment plan: -Bilateral pneumonia could be secondary bacterial, gram-negative organism IV ceftriaxone, Zithromax -Initial infection influenza type A Tamiflu 75 mg twice daily -Chronic nicotine dependence cigarette smoker Nicotine patch 21 -Hypokalemia Replace potassium -Mild transaminitis Liver ultrasound -Acute COPD exacerbation in a current smoker DuoNeb Q4. Nebulized Pulmicort. IV Solu-Medrol. Given the complexity and severity of patient's condition expect the patient to be in the hospital at least for 2 overnights Past Medical History Past Medical History: COPD, Pneumonia Additional Past Medical History / Comment(s): leaking heart valves. Bilateral glucoma removal & bilateral cataract surgery 2023 History of Any Multi-Drug Resistant Organisms: None Reported Past Surgical History: Breast Surgery, Section Additional Past Surgical History / Comment(s): RIGHT BREAST BIOPSY IN THE PAST Past Anesthesia/Blood Transfusion Reactions: No Reported Reaction Past Psychological History: No Psychological Hx Reported Smoking Status: Current every day smoker Past Alcohol Use History: None Reported Past Drug Use History: None Reported Medications and Allergies Home Medications Medication Instructions Recorded Confirmed Type Albuterol Inhaler [Ventolin Hfa 2 puff INHALATION RT-Q4H PRN 07/28/24 07/28/24 History Inhaler] Clarithromycin [Biaxin] 500 mg PO Q12HR 07/28/24 07/28/24 History Estradiol Cream [Estrace Cream 1 gm VAGINAL DIRECTED 07/28/24 07/28/24 History 0.01%] Metoprolol Succinate [Metoprolol 25 mg PO DAILY 07/28/24 07/28/24 History Succinate ER] Allergies Allergy/AdvReac Type Severity Reaction Status Date / Time codeine Allergy Unknown Verified 07/28/24 14:28 Childhood Physical Exam Vitals: Vital Signs Temp Pulse Pulse Resp BP BP Pulse Ox 07/28/24 21:34 90 8 L 07/28/24 19:21 98.5 F 90 8 L 118/65 92 L 07/28/24 15:58 99.3 F 85 17 111/65 93 L 07/28/24 14:18 91 L 07/28/24 14:17 105 H 07/28/24 14:08 97 07/28/24 13:24 98.1 F 92 19 122/60 92 L 07/28/24 11:26 101 H 18 129/69 88 L 07/28/24 10:21 22 07/28/24 10:15 100.0 F H 105 H 18 134/77 91 L 03/15/25 10:01 99.2 F 102 H 18 129/69 90 L Intake and Output 07/28/24 07/28/24 07/28/24 06:59 14:59 22:59 Other: Voiding Method Diaper # Voids 1 Weight 56.699 kg Results CBC & Chem 7: 07/28/24 11:06 07/28/24 11:06 Labs: Abnormal Lab Results - Last 24 Hours (Table) 07/28/24 07/28/24 07/28/24 Range/Units 11:06 11:06 11:06 APTT 21.8 L (22.0-30.0) sec Sodium 132 L (137-145) mmol/L Potassium 3.1 L (3.5-5.1) mmol/L Chloride 94 L (98-107) mmol/L Glucose 107 H (74-99) mg/dL AST 72 H (14-36) U/L ALT 75 H (4-34) U/L Total Protein 6.1 L (6.3-8.2) g/dL Albumin 3.4 L (3.5-5.0) g/dL Influenza Type A (PCR) Detected A (Not Detectd) Thrombosis Risk Factor Assmnt - Choose All That Apply Any of the Below Risk Factors Present?: Yes Each Risk Factor Represents 2 Points: Age 61-74 years Thrombosis Risk Factor Assessment Total Risk Factor Score: 2 Thrombosis Risk Factor Assessment Level: Low Risk
[2024-07-28] MEDS: methylPREDNISolone SOD SUCCI 40 MG/ML 1 ML VIAL IV SCH (23:30)
[2024-07-28] MEDS: OSELTAMIVIR 75 MG CAP PO SCH (23:30)
[2024-07-28] MEDS: IPRATROPIUM-ALBUTEROL 3 ML NEB INHALATION SCH (23:46)
[2024-07-28] MEDS: BUDESONIDE 1 MG/2 ML NEBU INHALATION SCH (23:46)
[2024-07-29 07:36] LABS: ALT 69 U/L (4-34); AST 58 U/L (14-36); African American GFR (CKD) >90 (>60 ml/min/1.73 sqM); Albumin 3.4 g/dL (3.5-5.0); Albumin/Globulin Ratio 1.3; Alkaline Phosphatase 123 U/L (38-126); Anion Gap 7 mmol/L; Blood Urea Nitrogen 10 mg/dL (7-17); Calcium 8.9 mg/dL (8.4-10.2); Carbon Dioxide 34 mmol/L (22-30); Chloride 92 mmol/L (98-107); Globulin 2.7 g/dL; Glucose 164 mg/dL (74-99); Non-African American GFR(CKD) >90 (>60 ml/min/1.73 sqM); Potassium 3.3 mmol/L (3.5-5.1); Sodium 133 mmol/L (137-145); Total Bilirubin 0.4 mg/dL (0.2-1.3); Total Protein 6.1 g/dL (6.3-8.2)
--- NOTE | 2024-07-29 08:04 | XR ---
EXAMINATION TYPE: XR chest 2V DATE OF EXAM: 07/29/2024 6:44 AM COMPARISON: Chest radiographs from 07/28/2024 TECHNIQUE: XR chest 2V Frontal and lateral views of the chest. CLINICAL INDICATION:Female, 64 years old with history of pneumonia; FINDINGS: Lungs/Pleura: There is flattening of the diaphragm with increased lucency of the lungs. Background as image changes. No evidence of pneumothorax or pleural effusion. Bilateral midlung airspace opacities are similar. Pulmonary vascularity: Unremarkable. Heart/mediastinum: Cardiomediastinal silhouette is enlarged and stable. Atherosclerotic calcificatio ns are seen in the aorta. Musculoskeletal: No acute osseous pathology. IMPRESSION: 1. Similar bilateral mid lung airspace opacities concerning for pneumonia. 2. COPD changes. [facility], , 07/29/2024 8:01 AM
--- NOTE | 2024-07-29 08:31 | US ---
EXAMINATION TYPE: US abdomen limited DATE OF EXAM: 07/29/2024 COMPARISON: NONE CLINICAL INDICATION: Female, 64 years old with history of Elevated liver enzyme; Elevated liver enzym es TECHNIQUE: Grayscale and color Doppler imaging of the right upper quadrant was performed. FINDINGS: EXAM MEASUREMENTS: Liver Length: 18.8 cm Gallbladder Wall: 0.3 cm CBD: 0.4 cm Right Kidney: 10.6 x 3.3 x 4.2 cm Pancreas: Tail obscured by overlying bowel gas Liver: mildly enlarged Gallbladder: contracted Evidence for sonographic Zhao's sign: no CBD: appears wnl Right Kidney: anechoic lesion upper pole = 0.9 x 0.7 x 1.0cm The visualized portions of the pancreas unremarkable. The liver is mildly enlarged without focal lesi on. Noncirrhotic morphology. Gallbladder is contracted without surrounding fluid or gallstones. Negat regino sonographic Zhao's sign. Common bile duct is within normal limits. Right kidney demonstrates no shadowing calculi, hydronephrosis or solid renal mass. There is an anechoic simple cyst within the u pper pole of the right kidney. IMPRESSION: 1. No ultrasound evidence for acute process. 2. Mild hepatomegaly without focal lesion. 3. Right renal 1 cm simple cyst. [facility], , 07/29/2024 8:29 AM
[2024-07-29] MEDS: METOPROLOL SUCCINATE (ER) 25 MG TAB.ER.24H PO SCH (09:16)
--- NOTE | 2024-07-29 13:38 | P.PN ---
Progress Note - Text Progress Note Date: 07/29/24 Chief Complaint: Unwell Pleasant 64-year-old patient follows with Dr. Yuen. Patient is accompanied by her in the room. About 6 days ago patient started feeling unwell that is on Tuesday. Finally decided to go and see her family doctor. Was seen by the DRIER OPERATOR HELPER. Told to come into the hospital were finally decided to come in today. Has been having fever chills. Increasing cough. Also had some loose stools. Tired decreased appetite rundown. Patient is a smoker July 29: Feels tired. Wheezing. Short of breath. Decreased appetite. 92% on 5 L. Will have the patient sit up in a chair. Incentive spirometry. Continue with Zithromax and, IV ceftriaxone, IV Solu-Medrol. Tamiflu. Active Medications Acetaminophen (Acetaminophen Tab 325 Mg Tab) 650 mg PO Q6HR PRN PRN Reason: Mild Pain or Fever > 100.5 Albuterol Sulfate (Albuterol Hfa Inhaler) 2 puff INHALATION RT-Q4H PRN PRN Reason: Shortness Of Breath Albuterol/Ipratropium (Ipratropium-Albuterol 3 Ml Neb) 3 ml INHALATION RT-Q4H [facility] Last Admin: 07/29/24 12:37 Dose: 3 ml Alprazolam (Alprazolam 0.25 Mg Tab) 0.25 mg PO Q6HR PRN PRN Reason: Anxiety Budesonide (Budesonide 1 Mg/2 Ml Nebu) 1 mg INHALATION RT-BID [facility] Last Admin: 07/29/24 09:54 Dose: 1 mg Calcium Carbonate/Glycine (Calcium Carbonate 500 Mg Chewable) 1,000 mg PO Q4HR PRN PRN Reason: Dyspepsia Enoxaparin Sodium (Enoxaparin 40 Mg/0.4 Ml Syringe) 40 mg SQ DAILY [facility] Last Admin: 07/29/24 09:16 Dose: 40 mg Estradiol (Estradiol 0.1 Mg/Gm Vaginal Cream 42.5 Gm Tube) 1 applic VAGINAL DIRECTED [facility] Last Admin: 07/28/24 19:46 Dose: Not Given Ceftriaxone Sodium 2 gm/ (Sodium Chloride) 50 mls @ 100 mls/hr IVPB Q24HR [facility]; Protocol Stop: 08/01/24 09:29 Last Admin: 07/29/24 09:15 Dose: 100 mls/hr Azithromycin 500 mg/ Sodium (Chloride) 250 mls @ 250 mls/hr IVPB DAILY@1200 [facility]; Protocol Stop: 07/30/24 12:59 Lactulose (Lactulose 20 Gm/30 Ml Cup) 20 gm PO DAILY PRN PRN Reason: Constipation Methylprednisolone Sodium Succinate (Methylprednisolone Sod Succi 40 Mg/Ml 1 Ml Vial) 40 mg IV Q8HR [facility] Last Admin: 07/29/24 07:44 Dose: 40 mg Metoprolol Succinate (Metoprolol Succinate (Er) 25 Mg Tab.Er.24h) 25 mg PO DAILY [facility] Last Admin: 07/29/24 09:16 Dose: 25 mg Miscellaneous Information (Pneumonia Protocol Utilized 1 Each Misc) 1 each PO ONCE PRN PRN Reason: Per Protocol Naloxone HCl (Naloxone 0.4 Mg/Ml 1 Ml Vial) 0.2 mg IV Q2M PRN PRN Reason: Opioid Reversal Nicotine (Nicotine 21mg/24hr Patch) 1 patch TRANSDERM DAILY [facility] Last Admin: 07/29/24 09:16 Dose: 1 patch Ondansetron HCl (Ondansetron 4 Mg/2 Ml Vial) 4 mg IVP Q8HR PRN PRN Reason: Nausea And Vomiting Oseltamivir Phosphate (Oseltamivir 75 Mg Cap) 75 mg PO Q12HR [facility]; Protocol Stop: 08/02/24 09:01 Last Admin: 07/29/24 09:16 Dose: 75 mg Temazepam (Temazepam 15 Mg Cap) 15 mg PO HS PRN PRN Reason: Insomnia Social history: Smokes a pack a day for close to 44 years. No alcohol. Lives with her . Physical examination: VITAL SIGNS: 98.2, 96, 19, 118 x 72, 90% on 6 L GENERAL: Reclining in bed, tired EYES: Pupils equal. Conjunctiva pooja l. HEENT: External appearance of nose and ears normal, oral cavity grossly normal. NECK: JVD not raised; masses not palpable. HEART: First and second heart sounds are normal; no edema. LUNGS: Respiratory rate increased, decreased breath sounds some scattered crackles. ABDOMEN: Soft, nontender, liver spleen not palpable, no masses palpable. PSYCH: [Alert and oriented x3; mood and affect bit anxious INVESTIGATIONS, reviewed in the clinical context: July 29: Sodium 133 potassium 3.3 creatinine 0.6 AST 58 ALT 69 Ultrasound abdomen limited: Liver mildly enlarged. Noncirrhotic morphology. Gallbladder contracted. CBD normal. July 28, 2024: White count 8.9 hemoglobin 13.4 platelets per 83 sodium 132 pota ssium 3.1 BUN 10 creatinine 0.66 AST 72 ALT 75 Influenza type a PCR: Detected [influenza type B, RSV, SARS-CoV-2: Not detected] EKG tracing personally reviewed by me-sinus tachycardia. NonspecificSlight ST segment changes Chest x-ray film personally reviewed by me-bilateral infiltrates. Hyperinflation Assessment plan: -Bilateral pneumonia could be secondary bacterial, gram-negative organism, c ausing hypoxia: Slow to respond IV ceftriaxone, Zithromax -Acute hypoxic respiratory failure combination of pneumonia, COPD, influenza A: Not improving Currently on 5 L nasal cannula -Initial infection influenza type A Tamiflu 75 mg twice daily -Chronic nicotine dependence cigarette smoker Nicotine patch 21 -Hypokalemia Replace potassium -Mild transaminitis Liver ultrasound: Hepatomegaly. Known cirrhotic morphology -Acute COPD exacerbation in a current smoker: Not improving DuoNeb Q4. Nebulized Pulmicort. IV Solu-Medrol. Discussed. Continue current medication treatment plan. Past Medical History Past Medical History: COPD, Pneumonia Additional Past Medical History / Comment(s): leaking heart valves. Bilateral glucoma removal & bilateral cataract surgery 2023 History of Any Multi-Drug Resistant Organisms: None Reported Past Surgical History: Breast Surgery, Section Additional Past Surgical History / Comment(s): RIGHT BREAST BIOPSY IN THE PAST Past Anesthesia/Blood Transfusion Reactions: No Reported Reaction Past Psychological History: No Psychological Hx Reported Smoking Status: Current every day smoker Past Alcohol Use History: None Reported Past Drug Use History: None Reported
[2024-07-29] MEDS: AZITHROMYCIN 500 MG in SODIUM CHLORIDE 0.9% 250 ML IVPB SCH (13:43)
--- NOTE | 2024-07-29 14:26 | P.CNPUL ---
History of Present Illness Consult date: 07/29/24 Reason for consult: dyspnea, pneumonia History of present illness: This is a 64-year-old female patient who is coming in for increased shortness of breath. The patient is known to have COPD and she is a chronic smoker. Symptoms started approximately 6 days ago as the patient developed cough and congestion and increased wheezing. Her breathing was becoming more labored and the patient was feeling tired and rundown along with diminished appetite and the patient accordingly presented emergently department for further investigation. The patient checked positive for influenza A. The white cell count was at 8.9 with a heme of 13.4. Normal coagulation profile. Blood work showed a sodium level of 132, potassium level was at 3.1. Bicarb levels at 30. proBNP level is 1500 with troponin being negative. LFTs showed an AST of 72 ALT of 75. Albumin level is at 3.4. Chest x-ray done at the time of admission showed COPD with some airspace disease in the mid and lower lung jean-baptiste bilaterally. A repeat chest x-ray was done today and the findings are essentially similar. For now, the patient is on DuoNeb nebulized treatments [id number]. She is on Rocephin and Zithromax. She is on Tamiflu. She is on IV Solu-Medrol. She re zev on oxygen and 5 L nasal cannula with a pulse ox of 92%. No previous hospitalization for COPD related complications. She is not oxygen dependent. Uses albuterol rescue inhaler on an as-needed basis at baseline. Review of Systems Constitutional: Reports fatigue, Reports lethargy, Reports poor appetite, Reports weakness Eyes: denies as per HPI, denies blurred vision, denies bulging eye, denies decreased vision, denies diplopia, denies discharge, denies dry eye, denies irritation, denies itching, denies pain, denies photophobia, denies loss of peripheral vision, denies loss of vision, denies tunnel vision/blind spots Ears: deny: decreased hearing, ear discharge, earache, tinnitus Ears, nose, mouth and throat: Reports as per HPI Breasts: absent: as per HPI, change in shape, gynecomastia, masses, nipple discharge, pain, skin changes, swelling Cardiovascular: Reports as per HPI, Reports decreased exercise tolerance, Rep orts dyspnea on exertion Respiratory: Reports congestion, Reports cough Gastrointestinal: Reports as per HPI Genitourinary: Reports as per HPI Menstruation: Reports as per HPI Musculoskeletal: Reports as per HPI Musculoskeletal: absent: ankle pain, ankle stiffness, ankle swelling, as per HPI, elbow pain, elbow stiffness, elbow swelling, foot pain, foot stiffness, foot swelling, hand pain, hand stiffness, hand swelling, hip pain, hip stiffness, hip swelling, knee pain, knee stiffness, knee swelling, shoulder pain, shoulder stiffness, shoulder swelling, wrist pain, wrist stiffness, wrist swelling Integumentary: Reports as per HPI Neurological: Reports as per HPI Psychiatric: Reports as per HPI Endocrine: Reports as per HPI Hematologic/Lymphatic: Reports as per HPI Allergic/Immunologic: Reports as per HPI Past Medical History Past Medical History: COPD, Pneumonia Additional Past Medical History / Comment(s): leaking heart valves. Bilateral glucoma removal & bilateral cataract surgery 2023 History of Any Multi-Drug Resistant Organisms: None Reported Past Surgical History: Breast Surgery, Section Additional Past Surgical History / Comment(s): RIGHT BREAST BIOPSY IN THE PAST Past Anesthesia/Blood Transfusion Reactions: No Reported Reaction Past Psychological History: No Psychological Hx Reported Smoking Status: Current every day smoker Past Alcohol Use History: None Reported Past Drug Use History: None Reported Medications and Allergies Home Medications Medication Instructions Recorded Confirmed Type Albuterol Inhaler [Ventolin Hfa 2 puff INHALATION RT-Q4H PRN 07/28/24 07/28/24 History Inhaler] Clarithromycin [Biaxin] 500 mg PO Q12HR 07/28/24 07/28/24 History Estradiol Cream [Estrace Cream 1 gm VAGINAL DIRECTED 07/28/24 07/28/24 History 0.01%] Metoprolol Succinate [Metoprolol 25 mg PO DAILY 07/28/24 07/28/24 History Succinate ER] Allergies Allergy/AdvReac Type Severity Reaction Status Date / Time codeine Allergy Unknown Verified 07/28/24 14:28 Childhood Physical Exam Vitals: Vital Signs Temp Pulse Pulse Resp BP BP Pulse Ox 07/29/24 10:08 100 07/29/24 09:54 95 92 L 07/29/24 07:35 98.2 F 96 19 118/72 90 L 07/29/24 04:02 94 07/29/24 03:51 94 07/29/24 00:38 99.8 F H 99 16 127/67 92 L 07/29/24 00:00 99 07/28/24 23:46 95 07/28/24 21:34 90 8 L 07/28/24 19:21 98.5 F 90 8 L 118/65 92 L 07/28/24 15:58 99.3 F 85 17 111/65 93 L 07/28/24 14:18 91 L 07/28/24 14:17 105 H 07/28/24 14:08 97 07/28/24 13:24 98.1 F 92 19 122/60 92 L 07/28/24 11:26 101 H 18 129/69 88 L Intake and Output 07/28/24 07/29/24 07/29/24 22:59 06:59 14:59 Other: Voiding Method Diaper # Voids 1 2 The patient appeared well nourished and normally developed. Vital signs as documented. BMI of 19.6 and the patient is currently on 5 L of oxygen by nasal cannula Head exam is unremarkable. No scleral icterus or corneal arcus noted. Neck is without jugular venous distension, thyromegaly, or carotid bruits. Carotid upstrokes are brisk bilaterally. Lungs reveal thoracic kyphosis along with diminished breath sounds along with scattered expiratory wheezes throughout the lung jean-baptiste. Breath sounds are quite silent bilaterally. Cardiac exam reveals the PMI to be normally sized and situated. Rhythm is regular. First and second heart sounds normal. No murmurs, rubs or gallops. Abdominal exam reveals normal bowel sounds, no masses, no organomegaly and no aortic enlargement. Extremities are nonedematous and both femoral and pedal pulses are normal. Examination of the skin revealed no evidence of significant rashes, suspicious appearing nevi or other concerning lesions. Neurologically, the patient is awake and alert and the patient does not have any focal neurological deficit. Cranial nerves are essentially intact. Results - Laboratory Findings CBC and BMP: 07/28/24 11:06 07/29/24 06:52 PT/INR, D-dimer PT 10.8 sec (10.0-12.5) 07/28/24 11:06 INR 1.0 (<1.2) 07/28/24 11:06 Abnormal lab findings: Abnormal Labs 07/28/24 07/28/24 07/28/24 11:06 11:06 11:06 APTT 21.8 L Sodium 132 L Potassium 3.1 L Chloride 94 L Carbon Dioxide Glucose 107 H AST 72 H ALT 75 H Total Protein 6.1 L Albumin 3.4 L Influenza Type A (PCR) Detected A 07/29/24 06:52 APTT Sodium 133 L Potassium 3.3 L Chloride 92 L Carbon Dioxide 34 H Glucose 164 H AST 58 H ALT 69 H Total Protein 6.1 L Albumin 3.4 L Influenza Type A (PCR) - Diagnostic Findings Chest x-ray: image reviewed Assessment and Plan Plan: Acute exacerbation of COPD with secondary shortness of breath Acute influenza A infection Lower lobe pulmonary consolidation/airspace disease. Rule out bacterial superinfection. The patient is currently on a combination of Tamiflu and Rocephin and Zithromax. Acute on chronic dyspnea secondary to above Acute hypoxic respiratory failure currently on 5 L of O2 nasal cannula Chronic smoker Thoracic kyphosis Glaucoma Cataracts Plan Titrate oxygen flow to maintain saturation above 90%, currently on 5 L Continue bronchodilators with DuoNeb updrafts Continue Symbicort IV Solu-Medrol 60 mg every 6 hours Tamiflu for the next 5 days Rocephin and Zithromax as an empiric antibiotic coverage Check procalcitonin level Consider CAT scan of the chest if no improvement in the pulmonary infiltrates described above
[2024-07-29] MEDS ORDERED: Potassium Replacement Protocol 1 EACH MISC MISCELLANE PRN (18:56)
[2024-07-29] MEDS: POTASSIUM CHLORIDE ER 20 MEQ TAB.ER PO SCH (19:46)
[2024-07-30] MEDS: POTASSIUM CHLORIDE ER 20 MEQ TAB.ER PO SCH (00:53)
[2024-07-30] MEDS: IPRATROPIUM-ALBUTEROL 3 ML NEB INHALATION SCH (09:45)
--- NOTE | 2024-07-30 14:35 | P.PN ---
Subjective Progress Note Date: 07/30/24 This is a 64-year-old female patient who is coming in for increased shortness of breath. The patient is known to have COPD and she is a chronic smoker. Symptoms started approximately 6 days ago as the patient developed cough and congestion and increased wheezing. Her breathing was becoming more labored and the patient was feeling tired and rundown along with diminished appetite and the patient accordingly presented emergently department for further investigation. The patient checked positive for influenza A. The white cell count was at 8.9 with a heme of 13.4. Normal coagulation profile. Blood work showed a sodium level of 132, potassium level was at 3.1. Bicarb levels at 30. proBNP level is 1500 with troponin being negative. LFTs showed an AST of 72 ALT of 75. Albumin level is at 3.4. Chest x-ray done at the time of admission showed COPD with some airspace disease in the mid and lower lung jean-baptiste bilaterally. A repeat chest x-ray was done today and the findings are essentially similar. For now, the patient is on DuoNeb nebulized treatments [id number]. She is on Rocephin and Zithromax. She is on Tamiflu. She is on IV Solu-Medrol. She remains on oxygen and 5 L nasal cannula with a pulse ox of 92%. No previous hospitalization for COPD related complications. She is not oxygen dependent. Uses albuterol rescue inhaler on an as-needed basis at baseline. The patient is seen today July 30, 2024 in follow-up on the regular medical floor. She is currently resting comfortably in bed. Awake and alert in no acute distress. Maintaining good O2 saturations in the 90s on 4 L/min per nasal cannula. She did test positive for influenza A. Potassium today 4.4. Pr ocalcitonin was negative at 0.14. She does remain on empiric antibiotics in the form of ceftriaxone and azithromycin. Remains on Tamiflu. Normal saline at 20 mL/h. She is continued on DuoNeb inhalations, Pulmicort and Perforomist inhalations, Solu-Medrol. NicoDerm patch in place. Blood culture reveals no growth to date. Objective - Vital Signs Vital signs: Vital Signs Temp 98.8 F 07/30/24 07:59 Pulse 96 07/30/24 13:17 Resp 18 07/30/24 07:59 BP 150/78 03/17/25 07:59 Pulse Ox 92 L 07/30/24 09:48 FiO2 Intake & Output 07/29/24 07/30/24 07/30/24 18:59 06:59 18:59 Other: Voiding Method Toilet Diaper # Voids 3 4 - Exam GENERAL EXAM: Alert, active, comfortable in no apparent distress. HEAD: Normocephalic. EYES: Normal reaction of pupils, equal size. NOSE: Clear with pink turbinates. THROAT: No erythema or exudates. NECK: No masses, no JVD. CHEST: No chest wall deformity. LUNGS: Equal air entry with bilateral end expiratory wheeze, diminished. CVS: S1 and S2 normal with no audible murmur, regular rhythm. ABDOMEN: No hepatosplenomegaly, normal bowel sounds, no guarding or rigidity. SPINE: No scoliosis or deformity SKIN: No rashes CENTRAL NERVOUS SYSTEM: No focal deficits, tone is normal in all 4 extremities. EXTREMITIES: There is no peripheral edema. No clubbing, no cyanosis. Peripheral pulses are intact. - Labs CBC & Chem 7: 07/28/24 11:06 07/30/24 03:57 Labs: Abnormal Lab Results - Last 24 Hours (Table) 07/29/24 Range/Units 23:35 Potassium 3.3 L (3.5-5.1) mmol/L Microbiology - Last 24 Hours (Table) 07/28/24 12:47 Blood Culture - Preliminary Blood Assessment and Plan Assessment: Acute hypoxic respiratory failure secondary to an acute exacerbation of COPD complicated by influenza A Acute influenza A infection, initiated on Tamiflu Lower lobe pulmonary consolidation/airspace disease. Rule out bacterial superinfection. Procalcitonin negative at 0.14. Empirically on Rocephin and Zithromax. Acute on chronic dyspnea secondary to above Chronic smoker Thoracic kyphosis Glaucoma Cataracts Plan: The patient was seen and evaluated Labs and medications reviewed Continue DuoNeb and elations, Solu-Medrol Continue Pulmicort and performance inhalations Continue Tamiflu Educated regarding smoking cessation NicoDerm patch in place Levaquin for DVT prophylaxis Titrate down the FiO2 as tolerated We will continue to follow I have personally seen and examined the patient, performed the documentation and the assessment and plan as written. Number of minutes spent on the visit: 10 Dictation was produced using [employer] dictation software. Please excuse any grammatical, word or spelling errors.
[2024-07-30] MEDS: FORMOTEROL FUMARATE 20 MCG/2 ML NEBU INHALATION SCH (20:58)
--- NOTE | 2024-07-30 22:58 | P.PN ---
Progress Note - Text Progress Note Date: 07/30/24 Chief Complaint: Unwell Pleasant 64-year-old patient follows with Dr. Yuen. Patient is accompanied by her in the room. About 6 days ago patient started feeling unwell that is on Tuesday. Finally decided to go and see her family doctor. Was seen by the PRODUCTION SUPERVISOR OFF SHIFT. Told to come into the hospital were finally decided to come in today. Has been having fever chills. Increasing cough. Also had some loose stools. Tired decreased appetite rundown. Patient is a smoker July 29: Feels tired. Wheezing. Short of breath. Decreased appetite. 92% on 5 L. Will have the patient sit up in a chair. Incentive spirometry. Continue with Zithromax and, IV ceftriaxone, IV Solu-Medrol. Tamiflu. July 30: Admitted with bilateral pneumonia, influenza type A, hypoxia. Remains short of breath. 86% room air has a cough. Told increase activity. Incentive spirometry keep on DuoNeb. IV Solu-Medrol. Ceftriaxone nebulized pelvic Active Medications Acetaminophen (Acetaminophen Tab 325 Mg Tab) 650 mg PO Q6HR PRN PRN Reason: Mild Pain or Fever > 100.5 Albuterol Sulfate (Albuterol Hfa Inhaler) 2 puff INHALATION RT-Q4H PRN PRN Reason: Shortness Of Breath Albuterol/Ipratropium (Ipratropium-Albuterol 3 Ml Neb) 3 ml INHALATION RT-QID [facility] Last Admin: 07/30/24 20:58 Dose: 3 ml Alprazolam (Alprazolam 0.25 Mg Tab) 0.25 mg PO Q6HR PRN PRN Reason: Anxiety Budesonide (Budesonide 1 Mg/2 Ml Nebu) 1 mg INHALATION RT-BID [facility] Last Admin: 07/30/24 20:59 Dose: 1 mg Calcium Carbonate/Glycine (Calcium Carbonate 500 Mg Chewable) 1,000 mg PO Q4HR PRN PRN Reason: Dyspepsia Enoxaparin Sodium (Enoxaparin 40 Mg/0.4 Ml Syringe) 40 mg SQ DAILY [facility] Last Admin: 07/30/24 08:38 Dose: 40 mg Estradiol (Estradiol 0.1 Mg/Gm Vaginal Cream 42.5 Gm Tube) 1 applic VAGINAL DIRECTED [facility] Last Admin: 07/30/24 17:38 Dose: Not Given Formoterol Fumarate (Formoterol Fumarate 20 Mcg/2 Ml Nebu) 20 mcg INHALATION RT-BID [facility] Last Admin: 07/30/24 20:58 Dose: 20 mcg Ceftriaxone Sodium 2 gm/ (Sodium Chloride) 50 mls @ 100 mls/hr IVPB Q24HR [facility]; Protocol Stop: 08/01/24 09:29 Last Admin: 07/30/24 08:39 Dose: 100 mls/hr Lactulose (Lactulose 20 Gm/30 Ml Cup) 20 gm PO DAILY PRN PRN Reason: Constipation Methylprednisolone Sodium Succinate (Methylprednisolone Sod Succi 40 Mg/Ml 1 Ml Vial) 40 mg IV Q8HR [facility] Last Admin: 07/30/24 17:35 Dose: 40 mg Metoprolol Succinate (Metoprolol Succinate (Er) 25 Mg Tab.Er.24h) 25 mg PO DAILY [facility] Last Admin: 07/30/24 08:40 Dose: 25 mg Miscellaneous Information (Pneumonia Protocol Utilized 1 Each Misc) 1 each PO ONCE PRN PRN Reason: Per Protocol Miscellaneous Information (Potassium Replacement Protocol 1 Each Misc) 1 each MISCELLANE DAILY PRN; Protocol PRN Reason: Per Protocol Naloxone HCl (Naloxone 0.4 Mg/Ml 1 Ml Vial) 0.2 mg IV Q2M PRN PRN Reason: Opioid Reversal Nicotine (Nicotine 21mg/24hr Patch) 1 patch TRANSDERM DAILY [facility] Last Admin: 07/30/24 08:39 Dose: 1 patch Ondansetron HCl (Ondansetron 4 Mg/2 Ml Vial) 4 mg IVP Q8HR PRN PRN Reason: Nausea And Vomiting Oseltamivir Phosphate (Oseltamivir 75 Mg Cap) 75 mg PO Q12HR [facility]; Protocol Stop: 08/02/24 09:01 Last Admin: 07/30/24 21:53 Dose: 75 mg Temazepam (Temazepam 15 Mg Cap) 15 mg PO HS PRN PRN Reason: Insomnia Social history: Smokes a pack a day for close to 44 years. No alcohol. Lives with her . Physical examination: VITAL SIGNS: 97.6, 110, 18, 117 x 70, 96% [place] GENERAL: Reclining in bed, tired EYES: Pupils equal. Conjunctiva pooja l. HEENT: External appearance of nose and ears normal, oral cavity grossly normal. NECK: JVD not raised; masses not palpable. HEART: First and second heart sounds are normal; no edema. LUNGS: Respiratory rate increased, decreased breath sounds some scattered crackles. ABDOMEN: Soft, nontender, liver spleen not palpable, no masses palpable. PSYCH: [Alert and oriented x3; mood and affect bit anxious INVESTIGATIONS, reviewed in the clinical context: July 29: Sodium 133 potassium 3.3 creatinine 0.6 AST 58 ALT 69 Ultrasound abdomen limited: Liver mildly enlarged. Noncirrhotic morphology. Gallbladder contracted. CBD normal. July 28, 2024: White count 8.9 hemoglobin 13.4 platelets per 83 sodium 132 potassium 3.1 BUN 10 creatinine 0.66 AST 72 ALT 75 Influenza type a PCR: Detected [influenza type B, RSV, SARS-CoV-2: Not detected] EKG tracing personally reviewed by me-sinus tachycardia. NonspecificSlight ST segment changes Chest x-ray film personally reviewed by me-bilateral infiltrates. Hyperinflation Assessment plan: -Bilateral pneumonia could be secondary bacterial, gram-negative organism, causing hypoxia: Slow to respond IV ceftriaxone, Zithromax -Acute hypoxic respiratory failure combination of pneumonia, COPD, influenza A: Slow to respond Currently on 4 L nasal cannula -Initial infection influenza type A Tamiflu 75 mg twice daily -Chronic nicotine dependence cigarette smoker Nicotine patch 21 -Hypokalemia Replace potassium -Mild transaminitis Liver ultrasound: Hepatomegaly. Not cirrhotic morphology -Acute COPD exacerbation in a current smoker: Not improving DuoNeb 4 times daily. Nebulized Pulmicort. IV Solu-Medrol 40 mg Q8. Increase activity. Incentive spirometry. Up in chair. Past Medical History Past Medical History: COPD, Pneumonia Additional Past Medical History / Comment(s): leaking heart valves. Bilateral glucoma removal & bilateral cataract surgery 2023 History of Any Multi-Drug Resistant Organisms: None Reported Past Surgical History: Breast Surgery, Section Additional Past Surgical History / Comment(s): RIGHT BREAST BIOPSY IN THE PAST Past Anesthesia/Blood Transfusion Reactions: No Reported Reaction Past Psychological History: No Psychological Hx Reported Smoking Status: Current every day smoker Past Alcohol Use History: None Reported Past Drug Use History: None Reported
[2024-07-31 07:48] VITALS: BP 135/72; RESP 18; TEMP 99.2
[2024-07-31 13:06] VITALS: PULSE 88
--- NOTE | 2024-07-31 14:43 | P.PN ---
Subjective Progress Note Date: 07/31/24 This is a 64-year-old female patient who is coming in for increased shortness of breath. The patient is known to have COPD and she is a chronic smoker. Symptoms started approximately 6 days ago as the patient developed cough and congestion and increased wheezing. Her breathing was becoming more labored and the patient was feeling tired and rundown along with diminished appetite and the patient accordingly presented emergently department for further investigation. The patient checked positive for influenza A. The white cell count was at 8.9 with a heme of 13.4. Normal coagulation profile. Blood work showed a sodium level of 132, potassium level was at 3.1. Bicarb levels at 30. proBNP level is 1500 with troponin being negative. LFTs showed an AST of 72 ALT of 75. Albumin level is at 3.4. Chest x-ray done at the time of admission showed COPD with some airspace disease in the mid and lower lung jean-baptiste bilaterally. A repeat chest x-ray was done today and the findings are essentially similar. For now, the patient is on DuoNeb nebulized treatments [id number]. She is on Rocephin and Zithromax. She is on Tamiflu. She is on IV Solu-Medrol. She remains on oxygen and 5 L nasal cannula with a pulse ox of 92%. No previous hospitalization for COPD related complications. She is not oxygen dependent. Uses albuterol rescue inhaler on an as-needed basis at baseline. The patient is seen today July 30, 2024 in follow-up on the regular medical floor. She is currently resting comfortably in bed. Awake and alert in no acute distress. Maintaining good O2 saturations in the 90s on 4 L/min per nasal cannula. She did test positive for influenza A. Potassium today 4.4. Pr ocalcitonin was negative at 0.14. She does remain on empiric antibiotics in the form of ceftriaxone and azithromycin. Remains on Tamiflu. Normal saline at 20 mL/h. She is continued on DuoNeb inhalations, Pulmicort and Perforomist inhalations, Solu-Medrol. NicoDerm patch in place. Blood culture reveals no growth to date. The patient is seen today July 31, 2024 in follow-up on the regular medical floor. She is currently up in a chair. Awake and alert in no acute distress. Maintaining O2 saturations in the 90s on 2 L/min per nasal cannula. She does desaturate to 82% while up walking without oxygen. No new labs today. She is continued on DuoNeb inhalations, Pulmicort and Perforomist inhalations, Solu- Medrol. NicoDerm patch in place. Remains on Tamiflu. Lovenox for DVT prophyla xis. Objective - Vital Signs Vital signs: Vital Signs Temp 99.2 F 07/31/24 07:06 Pulse 88 07/31/24 13:14 Resp 18 07/31/24 07:06 BP 135/72 07/31/24 07:06 Pulse Ox 87 L 07/31/24 10:41 FiO2 Intake & Output 07/30/24 07/31/24 07/31/24 18:59 06:59 18:59 Other: Voiding Method Toilet Diaper # Voids 3 3 - Exam GENERAL EXAM: Alert, pleasant 64-year-old female, sitting up in a chair, on 2 L nasal cannula, comfortable in no apparent distress. HEAD: Normocephalic. EYES: Normal reaction of pupils, equal size. NOSE: Clear with pink turbinates. THROAT: No erythema or exudates. NECK: No masses, no JVD. CHEST: No chest wall deformity. LUNGS: Equal air entry with faint end expiratory wheeze, diminished. CVS: S1 and S2 normal with no audible murmur, regular rhythm. ABDOMEN: No hepatosplenomegaly, normal bowel sounds, no guarding or rigidity. SPINE: No scoliosis or deformity SKIN: No rashes CENTRAL NERVOUS SYSTEM: No focal deficits, tone is normal in all 4 extremities. EXTREMITIES: There is no peripheral edema. No clubbing, no cyanosis. Periph eral pulses are intact. - Labs CBC & Chem 7: 07/28/24 11:06 07/30/24 03:57 Labs: Microbiology - Last 24 Hours (Table) 07/28/24 12:47 Blood Culture - Preliminary Blood Assessment and Plan Assessment: Acute hypoxic respiratory failure secondary to an acute exacerbation of COPD co mplicated by influenza A Acute influenza A infection, initiated on Tamiflu Lower lobe pulmonary consolidation/airspace disease. Rule out bacterial superinfection. Procalcitonin negative at 0.14. Acute on chronic dyspnea secondary to above Chronic smoker Thoracic kyphosis Glaucoma Cataracts Plan: The patient was seen and evaluated Medications reviewed Cleared for discharge Evaluate for possible home oxygen Complete a course of Tamiflu Continue Symbicort Completed prednisone taper Continue NicoDerm patches Educated regarding smoking cessation Follow-up in our office in 1 week I have personally seen and examined the patient, performed the documentation and the assessment and plan as written. Number of minutes spent on the visit: 10 Dictation was produced using [employer] dictation software. Please excuse any grammatical, word or spelling errors.
--- NOTE | 2024-07-31 20:55 | P.DS ---
Providers Date of admission: 07/28/24 12:45 Expected date of discharge: 07/31/24 Attending physician: Tristan Hardin Consults: 07/28/24 12:45 Consult Physician Routine Consulting Provider: Tj Clayton Consult Reason/Comments: hypoxia, pna Do you want consulting provider notified?: Yes Primary care physician: [facility] Course: Chief Complaint: Unwell Pleasant 64-year-old patient follows with Dr. Yuen. Patient is accompanied by her in the room. About 6 days ago patient started feeling unwell that is on Tuesday. Finally decided to go and see her family doctor. Was seen by the TRAVEL REGISTERED NURSE ONCOLOGY. Told to come into the hospital were finally decided to come in today. Has been having fever chills. Increasing cough. Also had some loose stools. Tired decreased appetite rundown. Patient is a smoker July 29: Feels tired. Wheezing. Short of breath. Decreased appetite. 92% on 5 L. Will have the patient sit up in a chair. Incentive spirometry. Continue with Zithromax and, IV ceftriaxone, IV Solu-Medrol. Tamiflu. July 30: Admitted with bilateral pneumonia, influenza type A, hypoxia. Remains short of breath. 86% room air has a cough. Told increase activity. Incentive spirometry keep on DuoNeb. IV Solu-Medrol. Ceftriaxone nebulized pelvic July 31: Patient doing much better. Advised against smoking. Will require oxygen for home. 2 L at rest. After about 4 activity. Questions answered. Discharged with Symbicort. Prednisone taper. Nicotine patch. Follow-up with Dr. Curtis. Reemphasized to use incentive spirometry Discussion and discharge planning more than 35 minutes Social history: Smokes a pack a day for close to 44 years. No alcohol. Lives with her . Physical examination: VITAL SIGNS: 99.2, 106, 18, 135 x 72, 87% on room air upon rest. 82% with activity GENERAL: Reclining in bed, tired EYES: Pupils equal. Conjunctiva pooja l. HEENT: External appearance of nose and ears normal, oral cavity grossly normal. NECK: JVD not raised; masses not palpable. HEART: First and second heart sounds are normal; no edema. LUNGS: Respiratory rate normal, decreased breath sounds occasional crackles. ABDOMEN: Soft, nontender, liver spleen not palpable, no masses palpable. PSYCH: [Alert and oriented x3; mood and affect bit anxious INVESTIGATIONS, reviewed in the clinical context: July 29: Sodium 133 potassium 3.3 creatinine 0.6 AST 58 ALT 69 Ultrasound abdomen limited: Liver mildly enlarged. Noncirrhotic morphology. Gallbladder contracted. CBD normal. July 28, 2024: White count 8.9 hemoglobin 13.4 platelets per 83 sodium 132 potassium 3.1 BUN 10 creatinine 0.66 AST 72 ALT 75 Influenza type a PCR: Detected [influenza type B, RSV, SARS-CoV-2: Not detected] EKG tracing personally reviewed by me-sinus tachycardia. NonspecificSlight ST segment changes Chest x-ray film personally reviewed by me-bilateral infiltrates. Hyperinflatio n Assessment plan: -Bilateral pneumonia could be secondary bacterial, gram-negative organism, causing hypoxia: DC that IV ceftriaxone, Zithromax. No further antibiotics -Acute hypoxic respiratory failure combination of pneumonia, COPD, influenza A: After Discharged on 2 L nasal cannula. -Initial infection influenza type A Tamiflu 75 mg twice daily -Chronic nicotine dependence cigarette smoker Nicotine patch 21 -Hypokalemia Replace potassium -Mild transaminitis Liver ultrasound: Hepatomegaly. Not cirrhotic morphology -Acute COPD exacerbation in a current smoker: Not improving DuoNeb 4 times daily. Nebulized Pulmicort. IV Solu-Medrol 40 mg Q8. Discharged on Symbicort. Prednisone taper. Ventolin as needed. Seen by pulmonary. Follow-up with Dr. Curtis outpatient Disposition: Home Past Medical History Past Medical History: COPD, Pneumonia Additional Past Medical History / Comment(s): leaking heart valves. Bilateral glucoma removal & bilateral cataract surgery 2023 History of Any Multi-Drug Resistant Organisms: None Reported Past Surgical History: Breast Surgery, Section Additional Past Surgical History / Comment(s): RIGHT BREAST BIOPSY IN THE PAST Past Anesthesia/Blood Transfusion Reactions: No Reported Reaction Past Psychological History: No Psychological Hx Reported Smoking Status: Current every day smoker Past Alcohol Use History: None Reported Past Drug Use History: None Reported Plan - Discharge Summary Discharge Rx Participant: No New Discharge Prescriptions: New Nicotine 21Mg/24Hr Patch [Habitrol] 1 patch TRANSDERM DAILY #30 patch predniSONE 10 mg PO DAILY #30 tab Budesonide/Formoterol Fumarate [Symbicort 160-4.5 Mcg Inhaler] 1 puff INHALATION BID #10.2 gm Continue Estradiol Cream [Estrace Cream 0.01%] 1 gm VAGINAL DIRECTED Metoprolol Succinate [Metoprolol Succinate ER] 25 mg PO DAILY Albuterol Inhaler [Ventolin Hfa Inhaler] 2 puff INHALATION RT-Q4H PRN PRN Reason: Shortness Of Breath Discontinued Clarithromycin [Biaxin] 500 mg PO Q12HR Discharge Medication List Albuterol Inhaler [Ventolin Hfa Inhaler] 2 puff INHALATION RT-Q4H PRN 07/28/24 [History] Estradiol Cream [Estrace Cream 0.01%] 1 gm VAGINAL DIRECTED 07/28/24 [History] Metoprolol Succinate [Metoprolol Succinate ER] 25 mg PO DAILY 07/28/24 [History] Budesonide/Formoterol Fumarate [Symbicort 160-4.5 Mcg Inhaler] 1 puff INHALATION BID #10.2 gm 07/31/24 [Rx] Nicotine 21Mg/24Hr Patch [Habitrol] 1 patch TRANSDERM DAILY #30 patch 07/31/24 [Rx] predniSONE 10 mg PO DAILY #30 tab 07/31/24 [Rx] Follow up Appointment(s)/Referral(s): Lambert Curtis MD [STAFF PHYSICIAN] - 08/13/24 8:30 am Todd Yuen DO [Primary Care Provider] - 1-2 days (Office stated they will call with follow-up appointment) [facility]ipment [NON-STAFF] - As Needed (oxygen) Patient Instructions/Handouts: How to Use an Incentive Spirometer (DC), Hypoxia (GEN) Activity/Diet/Wound Care/Special Instructions: home fi02 use IS Discharge Disposition: HOME SELF-CARE
== END 2024-07-31 13:30 | disposition home or self-care (01) | DRG 177 ==
LOC: EC 09:55 → 4SSUR 12:45
PROVIDERS: ADMIT Hospitalist; ATTEND Hospitalist
DX: J10.08 Influenza due to other identified influenza virus with other specified pneumonia (principal); J96.01 Acute respiratory failure with hypoxia; J15.69 Pneumonia due to other Gram-negative bacteria; J44.0 Chronic obstructive pulmonary disease with (acute) lower respiratory infection; J44.1 Chronic obstructive pulmonary disease with (acute) exacerbation; Z11.52 Encounter for screening for COVID-19; F17.210 Nicotine dependence, cigarettes, uncomplicated; H26.9 Unspecified cataract; R74.01 Elevation of levels of liver transaminase levels; E87.6 Hypokalemia; M40.294 Other kyphosis, thoracic region; H40.9 Unspecified glaucoma; M40.204 Unspecified kyphosis, thoracic region; Z79.899 Other long term (current) drug therapy; Z88.5 Allergy status to narcotic agent; Z98.42 Cataract extraction status, left eye; Z98.41 Cataract extraction status, right eye; Z87.01 Personal history of pneumonia (recurrent)
CPT/HCPCS: 36415; 71046; 76705; 80053; 83605; 83735; 83880; 84132; 84145; 84484; 85025; 85610; 85730; 87040; 87636; 93005; 94640; 94760; 96365; 96366; 96375; 99291